=== PATIENT | male | born 1955 | race Caucasian/White ===

== ENCOUNTER 2020-11-07 14:21 | Inpatient (IN) | payer MEDICARE, SELFPAY ==
[2020-11-07] VITALS (11 sets, daily range): BP systolic 91–159; BP diastolic 70–82; PULSE 84–99; RESP 18–32; TEMP 36.7; O2SAT 91–100; BMI 40.6; BMI 39.1
--- NOTE | 2020-11-07 15:43 | RAD_ITS ---
STUDY: X-RAY CHEST REASON FOR EXAM: Male, 65 years old. sob TECHNIQUE: 1 view COMPARISON: Prior chest radiograph from 10/26/2012 FINDINGS: The lungs are clear and expanded. There is no demonstrated pleural abnormality. Normal size heart. Normal mediastinum and issa. Normal visualized pulmonary arteries. There is atherosclerotic calcification of the aortic arch with tortuosity. Normal visualized thoracic spine. Normal visualized ribs, clavicles, and shoulders. There is no demonstrated abnormality of the visualized soft tissue structures of the upper abdomen. RAD/Chest 1 View (Portable) IMPRESSION: No acute cardiopulmonary findings or changes. Negative for consolidation, atelectasis, cardiomegaly or pleural effusion. Electronically Signed: Julia Jacob MD at 17:00 EDT , Service support ,
--- NOTE | 2020-11-07 15:43 | EKG12_ITS ---
Test Reason : SOB Blood Pressure : / mmHG Vent. Rate : 092 BPM Atrial Rate : 092 BPM P-R Int : 174 ms QRS Dur : 092 ms QT Int : 364 ms P-R-T Axes : 051 007 084 degrees QTc Int : 450 ms Normal sinus rhythm Possible Inferior infarct , age undetermined Abnormal ECG Confirmed by PAOLO BHANDARI, CARLA ([id number]), editorial assistant FELIPA SULLIVAN ([id number]) on 11/11/2020 10:28:36 AM Referred By: TAMMY Confirmed By:CARLA BOONE MD
--- NOTE | 2020-11-07 15:45 | ED.VIS.GEN ---
History of Present Illness Chief Complaint: Shortness of Breath Informant: Patient Onset: Days Context: Gradual Onset Timing: Continuous Current Severity: Moderate Maximum Severity: Severe Narrative: The patient is a 65-year-old male who presents to the emergency department shortness of breath, cough, and myalgias. The patient states his symptoms been worsening over the past 3 days. He is a heavy smoker. The patient states he is not seen a physician in over 25 years. He is on no daily medications. He states that he has been having significant cough with productive sputum. He states there is times where he feels like he cannot catch his breath. He denies any recent sick contacts. He denies any chest pain. He states today, just walking around he was very dyspneic. Prior similar symptoms: No Recent Illness/Hospitalization: No Past Medical History - Allergies and Home Meds Allergies/Adverse Reactions: Allergies No Known Allergies Allergy (Verified 11/07/20 14:38) Primary Care Physician: Toy Rabago MD [STAFF PHYSICIAN] - Prior records reviewed: Yes Past Medical History: None Surgical History: noncontributory Smoking Status: Current every day smoker Review of Systems General: Reports: Chills. Denies: Fever, Sweats Eyes: Denies: Visual changes - bilaterally, Diplopia ENT: Denies: Rhinorrhea, Sore throat Cardiovascular: Denies: Chest pain, Palpitations Respiratory: Reports: Dyspnea, Cough. Denies: Dyspnea on exertion Gastrointestinal: Denies: Abdominal pain, Nausea, Vomiting, Diarrhea, Melena, Hematochezia Genitourinary: Denies: Dysuria, Hematuria, Frequency Musculoskeletal: Denies: Back pain, Extremity Pain Skin: Denies: Rash, Wounds Neurological: Denies: Headache, Weakness, Numbness Physical Exam Vital Signs/Narrative: Vital Signs Temp Pulse Resp BP Pulse Ox 11/07/20 15:41 28 H 95 11/07/20 14:33 98.0 F 97 18 159/75 H 92 Inital Vital Signs reviewed: Yes General: Well nourished, Well developed, No Acute Distress Head: Normocephalic, Atraumatic Eyes: Perrl, EOMI ENT: Moist mucous membranes, No rhinorrhea Neck: Supple, Nontender Cardiovascular: Regular rate, Regular rhythm, No murmurs Respiratory: No distress, Chest nontender, Wheezing Abdomen: Soft, Nontender, Nondistended, Normal bowel sounds Back: Nontender, Normal Inspection Extremities: Nontender, No edema Skin: Normal color, No rash Neurological: Alert, Oriented x3, Cranial nerves II-XII grossly intact, Normal Strength, Normal Sensation Psychological: Normal affect, Normal Mood Diagnostic/Tx/Re-eval Chest X-Ray - ED: 1 View, Read by ED Physician, Normal, Heart, Mediastinum, Bony Structures, Chronic Changes - Rhythm Strip Rhythm Strip: Sinus Rhythm Rate: 90 Ectopy: None - EKG Initial EKG Interpretation: Sinus Rhythm, No Acute Injury Pattern Prior: No Prior - Medical Decision Making Patient presents with cough and shortness of breath. EKG was obtained on arrival. Was sinus rhythm without evidence of acute ischemia. Patient was given multiple rounds of breathing treatments with improvement of his aeration. Chest x-ray does not show focal infiltrative process. Covid was negative. Lactic was negative. He patient did have elevated troponin but still within the indeterminate range. He has no history of underlying heart disease he does not have an ischemic EKG. I do feel that this is more likely from his underlying hypoxia, but either way the patient is going to need admitted. My suspicion is that he likely has underlying COPD. I will treat him for community-acquired pneumonia given the productive sputum. The patient was discussed with the hospitalist and will be admitted. Impression 1. COPD exacerbation 2. Hypoxia 3. Indeterminate troponin ED Disposition - Plan for ED Patient: Referrals: Toy Rabago MD [STAFF PHYSICIAN] -
[2020-11-07] MEDS: Acetaminophen 500 MG Tablet 1000 MG PO ×2 (15:48→22:26)
[2020-11-07] MEDS: Ipratropium/Albuterol Sulfate 3 ML AMPUL.NEB INHALATION ×2 (15:57→22:03)
[2020-11-07 16:14] LABS: Absolute Lymphocyte Count 0.85 X10^3/uL (0.83-4.51); Basophil# 0.05 X10^3/uL; Basophil% 0.4 % (0-1); Eosinophil# 0.01 X10^3/uL; Eosinophils% 0.1 % (0-5); Hematocrit 41.1 % (40-54); Hemoglobin 14.1 g/dL (13.0-16.5); Lymphocyte # 0.85 X10^3/ul (4.0); Lymphocyte % 6.7 % (19-41); Mean Corp Hgb Conc 34.3 g/dL (32-36); Mean Corpuscular Hgb 32.3 pg (27.0-32.0); Mean Corpuscular Volume 94.1 fL (80-94); Mean Platelet Vol. 8.6 fl (6.2-12.0); Monocyte# 0.62 X10^3/uL; Monocyte% 4.9 % (0-10); NRBC Flagged by Analyzer 0 % (0-5); Neutrophil # 11.01 X10^3/uL (2.7-7.7); Neutrophil % 86.9 % (47-70); POSITIVE MORPHOLOGY YES; Platelet Count 153 K/mm3 (150-450); RBC Distribution Width CV 13.8 % (11.6-14.6); RBC Distribution Width SD 47.9 fl (35.1-43.9); Red Blood Count 4.37 M/mm3 (4.6-6.2); White Blood Count 12.7 K/mm3 (4.4-11.0)
[2020-11-07 16:17] LABS: Differential Indicated SCAN CRITERIA MET
[2020-11-07 16:33] LABS: ALB/GLOB Ratio 0.9 RATIO (0.9-2.4); AST(SGOT) 66 U/L (15-37); Alanine Aminotransfer ALT/SGPT 55 U/L (16-61); Albumin, Serum 3.4 g/dL (3.2-5.0); Alkaline Phosphatase 87 U/L (45-117); Anion Gap 7 (5-15); BUN 22 mg/dL (7-18); BUN/Creat Ratio 28.9 RATIO (10-20); Calcium,Total 9.1 mg/dL (8.5-10.1); Chloride 102 mmol/L (98-107); Creatinine, Serum 0.76 mg/dL (0.70-1.30); EST Glomerular Filtration Rate 109 mL/min (>60); Est Glom Filt Rate - Afr Amer 131 mL/min (>60); Estimated Creatinine Clearance 86.85 ml/min; Globulin 3.7 g/dL (2.2-4.2); Glucose 125 mg/dL (74-106); Potassium 3.4 mmol/L (3.5-5.1); Protein, Total 7.1 g/dL (6.4-8.2); Sodium Level 134 mmol/L (136-145)
[2020-11-07 16:49] LABS: Lactic Acid 1.1 mmol/L (0.4-1.9)
[2020-11-07] MEDS: Albuterol 2.5 MG/3 ML VIAL.NEB. INHALATION (16:51)
[2020-11-07 16:56] LABS: Platelet Estimate ADEQUATE (ADEQ); Red Cell Morphology N CHROM NORMAL (NORM C&C)
[2020-11-07 16:57] LABS: Anisocytosis RARE; Macrocytosis RARE
[2020-11-07 17:02] LABS: BNP,B-Type NATRIURETIC PEPTIDE 215.8 pg/mL (0-100)
[2020-11-07] MEDS: MethylPREDNISolone 125 MG/2 ML Vial IV (17:15)
[2020-11-07] MEDS: Ceftriaxone 1 GM/50 ML BAG IV (17:55)
--- NOTE | 2020-11-07 20:56 | HP.PCM_ITS ---
Problem List (1) Hypoxia Status: Acute (2) COPD exacerbation Status: Chronic (3) Nicotine dependence Status: Chronic Qualifiers: Nicotine product type: cigarettes Substance use status: unspecified nicotine-induced disorder Qualified Code(s): F17.219 - Nicotine dependence, cigarettes, with unspecified nicotine-induced disorders (4) Alcohol use disorder Status: Chronic (5) Hypokalemia Status: Acute (6) Elevated troponin Status: Acute History of Present Illness Date of Admission: 11/07/20 Chief Complaint: SOB, chest discomfort The patient is a 65 year old M with past medical history of chronic back pain, chronic nicotine use and alcohol use disorder comes in with complaints of shortness of breath, cough and generalized aches. This has been ongoing for about 3 days. Patient has not seen a physician in more than 25 years. He does not take any maintenance medications. He has shortness of breath on exertion and at rest. He denied any fever or chills. He denied any sick contacts. He lives alone. His vitals in the ED showed temperature of 98.0F, heart rate of 97, blood pressure 159/75, respiration rate 18, SPO2 is 92% on room air. BC count was 12.7, hemoglobin 14.1, platelet count 153, sodium 134, potassium 3.4, chloride 102, bicarbonate 25, BUN 22, creatinine 0.76, compared to one 5.8. Troponin was 0.366. EKG shows normal sinus rhythm, no acute ST-T changes. Admitting chest x-ray shows no acute cardiopulmonary findings. Past Medical History Past Medical History (Chronic Problems): Chronic Problems COPD exacerbation (Chronic) Nicotine dependence (Chronic) Alcohol use disorder (Chronic) Allergies No Known Allergies Allergy (Verified 11/07/20 14:38) Home Medications: Ambulatory Orders Medication Instructions Recorded NK 11/07/20 Surgical History: appendectomy, herniorrhaphy Psychiatric History: No pertinent psych hx Lives: Alone Smoking Status: Current every day smoker Tobacco Use: Cigarettes Alcohol: Heavy Drugs: None - *Family History Maternal History Items: Diabetes Paternal History Items: Heart Disease Review of Systems Constitutional: Reports: Malaise, Fatigue. Denies: Anorexia, Chills, Fever, Night Sweats, Weight Change Eyes: Denies: Blurred vision, Cataracts, Conjunctivae Inflammation, Pain, Redness, Vision Change HEENT: Denies: Head Aches, Hearing Changes, Sinus Congestion, Sinus Drainage Cardiovascular: Denies: Chest Pain, Claudication, Orthopnea, Palpitations, Paroxysmal Noc. Dyspnea Respiratory: Reports: Cough, Shortness of breath at rest, Shortness of breath upon exertion. Denies: Sputum production Gastrointestinal: Denies: Abdominal Pain, Nausea, Vomiting Genitourinary: Denies: Dysuria, Frequency, Incontinence Musculoskeletal: Denies: Joint Pain, Joint stiffness, Joint swelling, Joint Tenderness Skin: Denies: Pruritis, Rash, Wounds Neurological: Denies: Difficulty swallowing, Focal weakness, Numbness, Tingling Psychiatric: Denies: Anxiety, Depression, Homicidal Ideations, Suicidal Ideations Hematologic/ Lymphatic: Denies: Easy Bruising, Easy Bleeding VTE Information - Inpt Only VTE Present on Admission: No VTE Pharm Prophylaxis ordered?: Yes - Physical Exam Vitals/I&O's: Vital Signs Temp Pulse Resp BP Pulse Ox 98.1 F 91 20 H 122/73 H 92 11/07/20 18:28 11/07/20 19:00 11/07/20 18:28 11/07/20 18:28 11/07/20 19:34 Oxygen Flow Rate (L/min) 2 Oxygen Delivery Method Nasal Cannula Weight: 141.974 kg Body Mass Index (BMI) 39.1 Intake and Output for Last 24 Hours 11/05/20 11/06/20 11/07/20 23:59 23:59 23:59 Intake Total 550 / 550 Balance 550 / 550 General: Alert, Oriented x3, Cooperative, No apparent distress HEENT: Atraumatic, PERRLA, EOMI, Normocephalic Oral: Moist Mucosa Neck: Supple Lungs: Diminished, Wheezes Cardiovascular: Regular rate, Regular Rhythm, Normal S1, Normal S2 Abdomen: Bowel Sounds Present, Soft, Non Tender, Non-Distended, No Hepato- splenomegaly Extremities: No edema Skin: No rashes Musculoskeletal: No Tenderness to Palpation of Joints or Extremities Lymphatic: No Cervical, Supraclavicular, or Inguinal Adenopathy Neurological: Cranial nerves II-XII grossly intact, Neuro grossly intact Psych/Mental Status: Normal Affect, Appropriate Microbiology Past 72 Hours 11/07/20 16:06 Mucosa - Nasopharyngeal SARS-CoV-2 Antigen (Rapid) - Final Laboratory Results 11/07/20 16:00: WBC 12.7 H, RBC 4.37 L, Hgb 14.1, Hct 41.1, MCV 94.1 H, MCH 32.3 H, MCHC 34.3, RDW Std Deviation 47.9 H, RDW Coeff of Isaura 13.8, Plt Count 153, MPV 8.6, Immature Gran % (Auto) 1.000 H, Neut % (Auto) 86.9 H, Lymph % (Auto) 6.7 L, [place] % (Auto) 4.9, Eos % (Auto) 0.1, Baso % (Auto) 0.4, Absolute Neuts (auto) 11.0 H, Absolute Lymphs (auto) 0.85, Nucleated RBC % 0, Platelet Estimate ADEQUATE, RBC Morphology N CHROM, Anisocytosis RARE, Macrocytosis RARE 11/07/20 16:00: Sodium 134 L, Potassium 3.4 L, Chloride 102, Carbon Dioxide 25.0, Anion Gap 7, BUN 22 H, Creatinine 0.76, Estim Creat Clear Calc 86.85, Est GFR (MDRD) Af Amer 131, Est GFR (MDRD) Non-Af 109, BUN/Creatinine Ratio 28.9 H, Glucose 125 H, Calcium 9.1, Total Bilirubin 0.60, AST 66 H, ALT 55, Alkaline Phosphatase 87, Troponin I 0.366 H, Total Protein 7.1, Albumin 3.4, Globulin 3.7, Albumin/Globulin Ratio 0.9 11/07/20 16:00: Lactic Acid 1.1 11/07/20 16:00: B-Natriuretic Peptide 215.8 H Current Medications Azithromycin 500 mg/ Dextrose 255 mls @ 250 mls/hr IV X1 ONE Stop: 11/07/20 21:21 Sodium Chloride (0.9% Saline Lock 10 Ml Syringe) 10 - 40 ml IV UD PRN PRN Reason: SALINE FLUSH Assessment/Plan All Active Problems Hypoxia (Acute) Hypokalemia (Acute) Elevated troponin (Acute) 1. Acute hypoxic respiratory failure secondary to acute COPD exacerbation Continue with breathing treatments, IV steroids, encourage use of incentive spirometer. Wean off oxygen for SPO2 more than 94% 2. Acute COPD exacerbation, in a chronic smoker COVID-19 rapid antigen is negative. Admitting chest x-ray showed no infiltrates. Respiratory panel is pending Continue as above 3. Elevated troponins, likely demand, secondary to #1 and [address]-T changes, no history of heart disease, will trend troponins 4. Hypokalemia, replace, recheck in a.m. 5. Nicotine dependence, continue replacement 6. Chronic alcohol use disorder, would monitor for alcohol withdrawal If patient goes into alcohol withdrawal, will start phenobarbital taper On thiamine, folic acid 7. DVT Prophylaxis with Lovenox subcu Inpatient E&M: 34266 Init Hosp L3
[2020-11-07] MEDS: Potassium Chloride Oral Tablet 20 MEQ 60 MEQ PO (22:24)
[2020-11-08] VITALS (17 sets, daily range): BP systolic 117–162; BP diastolic 67–89; PULSE 80–94; RESP 16–20; TEMP 36.6–37.1; O2SAT 91–95
[2020-11-08 00:23] LABS: Squamous Epithelial Cells - UA 0 SEEN /hpf (0-5)
[2020-11-08 00:25] LABS: Color, Urine Yellow (Yellow); Glucose, Dipstick 1000 mg/dl (Normal); Leukocyte Esterase-Dipstick 25 /ul (Negative); Nitrite-Dipstick Negative (Negative); Occult Blood-Urine 50 /ul (Negative); Protein-Dipstick 100 mg/dl (Negative); Urine Bilirubin Dipstick Negative (Negative); Urine Clarity Sl. Cloudy (Clear); Urine Urobilinogen 1 mg/dl (Normal)
[2020-11-08 00:39] LABS: Bacteria 2+ /hpf (None Seen); Hyaline Cast 0-5 SEEN /lpf (0-5); Ketone-Dipstick 150 mg/dl (Negative); Mucous, Urine 2+ /hpf (<or=2+); Red Blood Cells-Urine 0-5 SEEN /hpf (0-5); White Blood Cells 0-5 SEEN /hpf (0-5)
[2020-11-08 04:57] LABS: Absolute Lymphocyte Count 0.86 X10^3/uL (0.83-4.51); Absolute Neutrophil Count 9.9 X10^3/uL (2.0-7.7); Basophil# 0.03 X10^3/uL; Basophil% 0.3 % (0-1); Eosinophil# 0.21 X10^3/uL; Eosinophils% 1.8 % (0-5); Hematocrit 40.8 % (40-54); Hemoglobin 13.4 g/dL (13.0-16.5); Lymphocyte # 0.86 X10^3/ul (4.0); Lymphocyte % 7.3 % (19-41); Mean Corp Hgb Conc 32.8 g/dL (32-36); Mean Corpuscular Hgb 31.3 pg (27.0-32.0); Mean Corpuscular Volume 95.3 fL (80-94); Mean Platelet Vol. 9.4 fl (6.2-12.0); Monocyte# 0.49 X10^3/uL; Monocyte% 4.2 % (0-10); NRBC Flagged by Analyzer 0 % (0-5); Neutrophil # 9.93 X10^3/uL (2.7-7.7); Neutrophil % 84.8 % (47-70); Platelet Count 157 K/mm3 (150-450); RBC Distribution Width SD 49.2 fl (35.1-43.9); Red Blood Count 4.28 M/mm3 (4.6-6.2); White Blood Count 11.7 K/mm3 (4.4-11.0)
[2020-11-08] MEDS: Acetaminophen 500 MG Tablet 1000 MG PO ×3 (05:18→21:15)
[2020-11-08 05:21] LABS: ALB/GLOB Ratio 0.7 RATIO (0.9-2.4); AST(SGOT) 64 U/L (15-37); Alanine Aminotransfer ALT/SGPT 55 U/L (16-61); Alkaline Phosphatase 86 U/L (45-117); Anion Gap 11 (5-15); BUN 22 mg/dL (7-18); BUN/Creat Ratio 30.8 RATIO (10-20); Calcium,Total 9.3 mg/dL (8.5-10.1); Chloride 102 mmol/L (98-107); Creatinine, Serum 0.71 mg/dL (0.70-1.30); EST Glomerular Filtration Rate 117 mL/min (>60); Est Glom Filt Rate - Afr Amer 142 mL/min (>60); Estimated Creatinine Clearance 86.85 ml/min; Globulin 4.1 g/dL (2.2-4.2); Glucose 197 mg/dL (74-106); Protein, Total 7.1 g/dL (6.4-8.2); Sodium Level 137 mmol/L (136-145)
[2020-11-08] MEDS: 0.9% Saline Lock 10 ML Syringe IV ×2 (05:24→15:04)
[2020-11-08] MEDS: Enoxaparin 40 MG/0.4 ML Syringe SC (05:34)
[2020-11-08] MEDS: Ipratropium/Albuterol Sulfate 3 ML AMPUL.NEB INHALATION ×4 (07:24→19:37)
[2020-11-08] MEDS: Thiamine Hydrochloride 100 MG Tablet PO (09:16)
[2020-11-08] MEDS: Folic Acid 1 MG Tablet PO (09:16)
--- NOTE | 2020-11-08 11:03 | PCM.PN.HOSP ---
Patient Problems: Active and Suspected Problems Hypoxia (Acute) Hypokalemia (Acute) Elevated troponin (Acute) Subjective: Feeling better today, but still very short of breath whenever he moves. This is his first COPD exacerbation he has not seen a doctor in 25 years Vitals/I&O's: Vital Signs Temp Pulse Resp BP Pulse Ox 97.9 F 83 18 149/89 H 93 11/08/20 08:54 11/08/20 08:54 11/08/20 08:54 11/08/20 08:54 11/08/20 08:54 Oxygen Flow Rate (L/min) 2 Oxygen Delivery Method Nasal Cannula Weight: 319 lb 3.669 oz Body Mass Index (BMI) 39.1 Intake and Output for Last 24 Hours 11/06/20 11/07/20 11/08/20 23:59 23:59 23:59 Intake Total 805 / 1105 540 / 540 Output Total 1000 / 1000 Balance 805 / 305 -460 / -460 General: Alert, Oriented x3, Cooperative, No apparent distress HEENT: Atraumatic, PERRLA, EOMI, Normocephalic Oral: Moist Mucosa Neck: Supple, No JVD Lungs: No rhonchi, No rales, Diminished, Wheezes, - - Poor air movement Cardiovascular: Regular rate, Regular Rhythm, Normal S1, Normal S2, No murmurs Abdomen: Soft, Non Tender, Non-Distended, No Hepato-splenomegaly Extremities: No edema, Capillary Refill Less than 3 Seconds Skin: No rashes, No breakdown Neurological: Neuro grossly intact, Sensory exam intact to light touch and pain Psych/Mental Status: Normal Affect, Appropriate Microbiology Past 72 Hours 11/07/20 18:00 Mucosa - Nasopharyngeal Respiratory Panel (PCR) - Final 11/07/20 16:06 Mucosa - Nasopharyngeal SARS-CoV-2 Antigen (Rapid) - Final Laboratory Results 11/07/20 16:00: WBC 12.7 H, RBC 4.37 L, Hgb 14.1, Hct 41.1, MCV 94.1 H, MCH 32.3 H, MCHC 34.3, RDW Std Deviation 47.9 H, RDW Coeff of Isaura 13.8, Plt Count 153, MPV 8.6, Immature Gran % (Auto) 1.000 H, Neut % (Auto) 86.9 H, Lymph % (Auto) 6.7 L, [place] % (Auto) 4.9, Eos % (Auto) 0.1, Baso % (Auto) 0.4, Absolute Neuts (auto) 11.0 H, Absolute Lymphs (auto) 0.85, Nucleated RBC % 0, Platelet Estimate ADEQUATE, RBC Morphology N CHROM, Anisocytosis RARE, Macrocytosis RARE 11/07/20 16:00: Sodium 134 L, Potassium 3.4 L, Chloride 102, Carbon Dioxide 25.0, Anion Gap 7, BUN 22 H, Creatinine 0.76, Estim Creat Clear Calc 86.85, Est GFR (MDRD) Af Amer 131, Est GFR (MDRD) Non-Af 109, BUN/Creatinine Ratio 28.9 H, Glucose 125 H, Calcium 9.1, Total Bilirubin 0.60, AST 66 H, ALT 55, Alkaline Phosphatase 87, Troponin I 0.366 H, Total Protein 7.1, Albumin 3.4, Globulin 3.7, Albumin/Globulin Ratio 0.9 11/07/20 16:00: Lactic Acid 1.1 11/07/20 16:00: B-Natriuretic Peptide 215.8 H 11/07/20 22:10: Troponin I 0.179 H 11/08/20 00:15: Urine Color Yellow, Urine Clarity Sl. Cloudy, Urine pH 6.0, Ur Specific [place] 1.020, Urine Protein 100 H, Urine Glucose (UA) 1000 H, Urine Ketones 150 H, Urine Occult Blood 50 H, Urine Nitrite Negative, Urine Bilirubin Negative, Urine Urobilinogen 1 H, Ur Leukocyte Esterase 25 H, Urine RBC 0-5 SEEN, Urine WBC 0-5 SEEN, Ur Squamous Epith Cells 0 SEEN, Urine Bacteria 2+, Hyaline Casts 0-5 SEEN, Urine Mucus 2+ 11/08/20 00:35: Troponin I 0.164 H 11/08/20 04:05: WBC 11.7 H, RBC 4.28 L, Hgb 13.4, Hct 40.8, MCV 95.3 H, MCH 31.3, MCHC 32.8, RDW Std Deviation 49.2 H, RDW Coeff of Isaura 14.0, Plt Count 157, MPV 9.4, Immature Gran % (Auto) 1.600 H, Neut % (Auto) 84.8 H, Lymph % (Auto) 7.3 L, [place] % (Auto) 4.2, Eos % (Auto) 1.8, Baso % (Auto) 0.3, Absolute Neuts (auto) 9.9 H, Absolute Lymphs (auto) 0.86, Nucleated RBC % 0 11/08/20 04:05: Sodium 137, Potassium 4.0, Chloride 102, Carbon Dioxide 24.0, Anion Gap 11, BUN 22 H, Creatinine 0.71, Estim Creat Clear Calc 86.85, Est GFR (MDRD) Af Amer 142, Est GFR (MDRD) Non-Af 117, BUN/Creatinine Ratio 30.8 H, Glucose 197 H, Calcium 9.3, Total Bilirubin 0.30, AST 64 H, ALT 55, Alkaline Phosphatase 86, Total Protein 7.1, Albumin 3.0 L, Globulin 4.1, Albumin/Globulin Ratio 0.7 L 11/08/20 04:05: Troponin I 0.114 H Current Medications Acetaminophen (Acetaminophen 500 Mg Tablet) 1,000 mg PO TID [facility] Last Admin: 11/08/20 05:18 Dose: 1,000 mg Documented by: Al Hydroxide/Mg Hydroxide (Mag Hydrox/Al Hydrox/Simeth 30 Ml Udc) 30 ml PO Q6H PRN PRN PRN Reason: Gastric Burning Albuterol/Ipratropium (Ipratropium/Albuterol Sulfate 3 Ml Ampul.Neb) 3 ml INHALATION Q4HWA.RT [facility] Last Admin: 11/08/20 10:57 Dose: 3 ml Documented by: Dicyclomine HCl (Dicyclomine 10 Mg Capsule) 20 mg PO Q6H PRN PRN PRN Reason: abdominal discomfort Enoxaparin Sodium (Enoxaparin 40 Mg/0.4 Ml Syringe) 40 mg SC DAILY@0600 [facility] Last Admin: 11/08/20 05:34 Dose: 40 mg Documented by: Folic Acid (Folic Acid 1 Mg Tablet) 1 mg PO DAILY@0800 [facility] Last Admin: 11/08/20 09:16 Dose: 1 mg Documented by: Gabapentin (Gabapentin 300 Mg Capsule) 300 mg PO Q8H PRN PRN PRN Reason: moderate to severe anxiety Hydroxyzine Pamoate (Hydroxyzine Mary 25 Mg Capsule) 50 mg PO Q4H PRN PRN PRN Reason: mild anxiety Azithromycin 500 mg/ Dextrose 255 mls @ 250 mls/hr IV Q24@2200 [facility] Last Infusion: 11/07/20 22:46 Dose: Infused Documented by: Loperamide HCl (Loperamide 2 Mg Capsule) 2 mg PO Q4H PRN PRN PRN Reason: LOOSE STOOLS Methylprednisolone (Methylprednisolone 40 Mg/Ml Vial) 40 mg IV Q8 [facility] Last Admin: 11/08/20 05:19 Dose: 40 mg Documented by: Morphine Sulfate (Morphine 2 Mg/Ml Syringe) 2 mg IV Q3H PRN PRN PRN Reason: Pain Score 6-10 Nicotine (Nicotine 21 Mg Patch) 21 mg TD DAILY [facility] Last Admin: 11/08/20 09:16 Dose: 21 mg Documented by: Nicotine Polacrilex (Nicotine Polacrilex 4 Mg Gum) 4 mg PO Q2H PRN PRN PRN Reason: Nicotine Craving Ondansetron HCl (Ondansetron 4 Mg/2 Ml Vial) 4 mg IV Q8H PRN PRN PRN Reason: NAUSEA/VOMITING Ondansetron HCl (Ondansetron 8 Mg Tablet) 8 mg PO Q8H PRN PRN PRN Reason: NAUSEA Senna/Docusate Sodium (Senna/Docusate Sodium 1 Tablet) 2 tablet PO BID PRN PRN PRN Reason: Constipation Sodium Chloride (0.9% Saline Lock 10 Ml Syringe) 10 - 40 ml IV UD PRN PRN Reason: SALINE FLUSH Last Admin: 11/08/20 05:24 Dose: 10 ml Documented by: Thiamine HCl (Thiamine Hydrochloride 100 Mg Tablet) [facility] Last Admin: 11/08/20 09:16 Dose: 100 mg Documented by: Trazodone HCl (Trazodone 100 Mg Tablet) 100 mg PO QHS PRN PRN Reason: INSOMNIA STROKE Vital Signs/Narrative: Vital Signs Temp Pulse Resp BP Pulse Ox 11/08/20 08:54 97.9 F 83 18 149/89 H 93 11/08/20 07:24 86 20 H 92 11/08/20 07:09 84 Medical Necessity - Tobacco Use Smoking Status: Current every day smoker Tobacco Use: Cigarettes Assessment/Plan All Active Problems Hypoxia (Acute) Hypokalemia (Acute) Elevated troponin (Acute) 1. Acute hypoxic respiratory insufficiency secondary to COPD exacerbation/elevated troponin/tobacco abuse -Elevated troponin is likely secondary to demand ischemia however as he has not seen a doctor in over 25 years will obtain an echo to evaluate wall motion and if this is abnormal may potentially need to get cardiology consult or even proceed with a stress test. -He was 92% on room air in the ER however per report he desaturates to below 88% with any type of ambulation therefore we will continue with oxygen at 2 L and will wean as able -Discussed tobacco cessation -Continue with inhalers and steroids -Covid negative 2. Chronic alcohol abuse -He drinks about 6 beers a day -Denies having gone through withdrawal before -We will place him on a CIWA protocol and if necessary can start him on the withdrawal protocol 3. I discussed with him the importance of finding a PCP. Based on his body habitus he is likely obstructive sleep apnea also his blood sugar is climbing so he also likely has diabetes that have all been undiagnosed for a long time. He expressed understanding of need to take control of his health care. In the meantime we will obtain an A1c and place him on sliding scale insulin DVT: Lovenox Inpatient E&M: 26261 Subs Hosp L2
--- NOTE | 2020-11-08 11:09 | ECHOCS_ITS ---
Reason For Study: Dyspnea/SOB Procedure This was a 2D Doppler, Color Flow transthoracic echocardiogram. The study was technically difficult. Contrast injection was performed. Exam performed portable in patient room. Left Ventricle Normal LV size. Mild concentric left ventricular hypertrophy. Left ventricular systolic function is normal. The estimated ejection fraction is 60 %. Stage 2 diastolic dysfunction. No regional wall motion abnormalities noted. Right Ventricle Normal RV size. Normal systolic function. Atria The left atrium is mildly enlarged. Normal right atrium. Mitral Valve Normal mitral valve. Tricuspid Valve Normal tricuspid valve. Unable to estimate RV systolic pressure due to inadequate jet, pulmonary artery pressure probably normal. Aortic Valve The aortic valve is not well visualized. Pulmonic Valve The pulmonic valve is not well visualized. Great Vessels Normal aortic root. The pulmonary artery is normal size. Normal inferior vena cava. Pericardium/Pleural No pericardial effusion. Medication Diluted definity 2ml given slow IV push to enhance endocardial definition. MMode/2D Measurements & Calculations LVIDd: 6.0 cm IVSd: 1.4 cm LA dimension: 4.7 cm LVIDs: 4.5 cm LVPWd: 1.3 cm RVDd: 4.3 cm FS: 24.8 % LAV(MOD-bp): 89.9 ml LA A4 area: 26.1 cm2 RA A4 area: 20.4 cm2 LAV(MOD-bp) Indexed: 33.6 ml/m2 LAV(MOD-sp2): 89.0 ml LAV(MOD-sp4): 84.6 ml Time Measurements MV dec time: 0.18 sec Doppler Measurements & Calculations MV E max jn: 119.2 cm/sec Lat Peak E' Jn: 9.4 cm/sec Med Peak E' Jn: 7.4 cm/sec MV A max jn: 106.3 cm/sec E/E' lat: 12.7 E/E' med: 16.1 MV E/A: 1.1 MV V2 max: 121.3 cm/sec MV P1/2t max jn: 124.3 cm/sec Ao V2 max: 143.8 cm/sec MV max P.9 mmHg MV P1/2t: 75.9 msec Ao max P.3 mmHg MV V2 mean: 77.9 cm/sec MV dec slope: 479.7 cm/sec2 MV mean P.9 mmHg MV V2 VTI: 29.5 cm MVA(P1/2t): 2.9 cm2 LV V1 max: 109.4 cm/sec PA V2 max: 91.2 cm/sec LV V1 max P.8 mmHg Interpretation Summary Normal LV size. Mild concentric left ventricular hypertrophy. Left ventricular systolic function is normal. The estimated ejection fraction is 60 %. Stage 2 diastolic dysfunction. Contrast injection was performed. Ordering Physician: Kyle Sotomayor Referring Physician: no PCP noted Performed By: Abraham Antonio RCS
[2020-11-08 12:32] LABS: Hemoglobin A1c 5.2 % (3.8-5.6)
--- NOTE | 2020-11-08 13:50 | CASEMGMT ---
CLAUDIA MORENO assessment: Face to Face with patient for initial transition planning/care coordination assessment. CLAUDIA MORENO introduced self and role at [facility], pt voices understanding and consents to assessment. Pt is sitting up in bed in no distress on 2L nc. Pt is A/Ox4 and answers all questions appropriately. Care providers, pharmacy, and demographics verified. Presentation: SOB increased last 3 days, weakness/pain from shoulders to fingers Admitting dx: COPD exac PCP: Pt states does not currently have PCP and list of local PCP's provided. Specialists: Pt states no specialists. Preferred Pharmacy: [facility] Insurance: [facility] A/B Prescription Benefit: Pt does not have Rx coverage and states would like assistance with Rx assist resources, SW consulted. Pt states has been trying to work on [place], SW aware. Living Will/HPOA: Pt states does not have LW/HPOA but would possibly like to complete AD's at this time, SW consulted. LNOK: Caitlyn Sanabria, mother; Devika Sanabria, but 'for years' per pt, live separately-pt states he would like to keep Devika as contact Living Arrangements: Pt states lives alone in mobile home with 5 [address] in and states no concerns at home. Pt states independent with ADL's. Transportation: Pt states drives self and states no transportation concerns. DME/HHC: Pt states has a cane, rails, and grab bars. Pt states no preference for DME company, if oxygen required at discharge. Pt does state concerns with anyone coming into home and states 'I got to work on some things there first' and states would like oxygen(if needed) delivered to porch. Pt states no hx of HHC or SNF in the past. Pt states no concerns with going home at time of discharge. Pt is retired. Pt states smokes 2.5 packs of self-rolled pipe tobacco cigarettes daily and drinks 6 tall boys daily. Pt states he would like to stop smoking and feels he is doing well on the nicotine patch at this time but does state concerns with when he goes home. Pt is also interested in ETOH abuse resources at this time and states 'I know I need to make some changes.' SW consulted for this as well. Pt states no further concerns/needs. CM to follow for home oxygen need(green sheet on chart) and any further discharge planning/needs. Advised pt to ask for CM if any further questions/concerns/needs arise, voices understanding. Pt Goal: Home Plan: Home Esteban TAYLOR CM
--- NOTE | 2020-11-08 14:19 | CASEMGMT ---
Social Work SW received referral from RNCM for alcohol resources, advance directives and financial concerns. SW met with pt in room and introduced self and role of SW. Pt confirms that he drinks a 6 pack of Tall Boys each night. Pt stating that he has never been to a program for cessation and is interested in information. SW provided written information on , A New , AA programs and other area programs. Pt is agreeable for SW to make appt for pt at [facility]. Appointment made for 11/14 at 4:00pm. SW also explained Medicaid and provided written information on application process and number to call to apply. Verbal and written information also provided on prescription assistance programs and [employer]. SW discussed Living Will and Health Care POA and explained legal decision makers should pt not complete documents. Pt would like to consider options prior to completion. Social Work Rack Card provided and pt made aware he can make an appointment with Social Work to complete documents as outpatient. Plan: Appointment with [facility] for ETOH AYANNA Molina
--- NOTE | 2020-11-08 20:11 | PCM.PN.BLA ---
Progress Note Called about patient's hallucinations?he has been seeing mice in his room. Unclear if this is alcohol withdrawal-induced hallucinations CIWA score is 4. No started on a phenobarbital taper. We will go ahead and start him on a phenobarb taper STROKE Vital Signs/Narrative: Vital Signs Temp Pulse Resp BP Pulse Ox 11/08/20 20:03 98.7 F 89 16 155/76 H 91 11/08/20 19:00 85 11/08/20 16:51 88
[2020-11-08] MEDS: Phenobarbital 32.4 MG Tablet 64.8 MG PO (21:24)
[2020-11-09] VITALS (21 sets, daily range): BP systolic 128–181; BP diastolic 85–119; PULSE 75–92; RESP 16–22; TEMP 36.4–36.6; O2SAT 93–96; BMI 40.6
[2020-11-09] MEDS: Phenobarbital 32.4 MG Tablet 64.8 MG PO ×6 (00:42→20:17)
[2020-11-09] MEDS: Acetaminophen 500 MG Tablet 1000 MG PO ×3 (05:51→23:03)
[2020-11-09] MEDS: Enoxaparin 40 MG/0.4 ML Syringe SC (05:51)
[2020-11-09 06:41] LABS: Absolute Lymphocyte Count 1.51 X10^3/uL (0.83-4.51); Absolute Neutrophil Count 15.4 X10^3/uL (2.0-7.7); Basophil# 0.04 X10^3/uL; Basophil% 0.2 % (0-1); Eosinophil# 0.05 X10^3/uL; Eosinophils% 0.3 % (0-5); Hemoglobin 14.4 g/dL (13.0-16.5); Lymphocyte # 1.51 X10^3/ul (4.0); Lymphocyte % 8.2 % (19-41); Mean Corp Hgb Conc 33.5 g/dL (32-36); Mean Corpuscular Hgb 31.8 pg (27.0-32.0); Mean Corpuscular Volume 94.9 fL (80-94); Mean Platelet Vol. 8.9 fl (6.2-12.0); Monocyte# 1.35 X10^3/uL; Monocyte% 7.3 % (0-10); NRBC Flagged by Analyzer 0 % (0-5); Neutrophil # 15.36 X10^3/uL (2.7-7.7); Platelet Count 216 K/mm3 (150-450); Red Blood Count 4.53 M/mm3 (4.6-6.2); White Blood Count 18.5 K/mm3 (4.4-11.0)
[2020-11-09 07:04] LABS: Anion Gap 5 (5-15); BUN 29 mg/dL (7-18); BUN/Creat Ratio 46.3 RATIO (10-20); Calcium,Total 9.3 mg/dL (8.5-10.1); Chloride 108 mmol/L (98-107); Creatinine, Serum 0.63 mg/dL (0.70-1.30); EST Glomerular Filtration Rate 136 mL/min (>60); Est Glom Filt Rate - Afr Amer 164 mL/min (>60); Estimated Creatinine Clearance 86.85 ml/min; Glucose 155 mg/dL (74-106); Potassium 4.3 mmol/L (3.5-5.1); Sodium Level 139 mmol/L (136-145)
[2020-11-09] MEDS: Ipratropium/Albuterol Sulfate 3 ML AMPUL.NEB INHALATION ×4 (07:40→19:37)
[2020-11-09] MEDS: Thiamine Hydrochloride 100 MG Tablet PO (08:53)
[2020-11-09] MEDS: Folic Acid 1 MG Tablet PO (08:53)
--- NOTE | 2020-11-09 13:43 | NURSING ---
Report obtained from Chaya RN. This nurse will be talking over care for pt. This nurse is aware of recent Vital Signs.
--- NOTE | 2020-11-09 13:55 | PN_ITS ---
Patient Problems: Active and Suspected Problems Hypoxia (Acute) Hypokalemia (Acute) Elevated troponin (Acute) Subjective: Patient seen and examined. He still feels a bit short of breath today and was wheezing. He also complained of left flank pain which he says has been going on for about 2 years and is a tightness associated with shortness of breath. He is concerned that in light of his extreme smoking history, he may have a tumor there. Review of systems otherwise negative. He has remained hemodynamically stable and is on 2 L of oxygen. Vitals/I&O's: Vital Signs Temp Pulse Resp BP Pulse Ox 97.8 F 87 20 H 165/102 H 93 11/09/20 12:58 11/09/20 12:58 11/09/20 12:58 11/09/20 12:58 11/09/20 12:58 Oxygen Flow Rate (L/min) 2 Oxygen Delivery Method Nasal Cannula Weight: 325 lb 9.964 oz Body Mass Index (BMI) 39.1 Intake and Output for Last 24 Hours 11/07/20 11/08/20 11/09/20 23:59 23:59 23:59 Intake Total 805 / 1105 1765 / 2065 800 / 800 Output Total 2049 / 2049 800 / 800 Balance 805 / 305 -285 / 15 0 / 0 General: Alert, Oriented x3, Cooperative HEENT: Atraumatic, PERRLA, EOMI, Normocephalic Oral: Dry Mucosa Neck: Supple, No JVD, Negative Carotid Bruits Lungs: - - diminished breath sounds bibasally, with moderate wheezing. no crackles. On 2L of oxygen by nasal canula Cardiovascular: Regular rate, Regular Rhythm, Normal S1, Normal S2, No murmurs Abdomen: Bowel Sounds Present, Soft, Non Tender, Non-Distended, No Hepato- splenomegaly Extremities: No clubbing, No cyanosis, No edema, Capillary Refill Less than 3 Seconds Skin: No rashes, No breakdown Musculoskeletal: No Tenderness to Palpation of Joints or Extremities Lymphatic: No Cervical, Supraclavicular, or Inguinal Adenopathy Neurological: Cranial nerves II-XII grossly intact, Neuro grossly intact, Motor Exam 5/5 strength throughout Psych/Mental Status: Normal Affect, Appropriate, Alert and oriented to time, place, person, mood and affect Microbiology Past 72 Hours 11/07/20 18:00 Mucosa - Nasopharyngeal Respiratory Panel (PCR) - Final 11/07/20 16:06 Mucosa - Nasopharyngeal SARS-CoV-2 Antigen (Rapid) - Final Laboratory Results 11/09/20 06:31: WBC 18.5 H, RBC 4.53 L, Hgb 14.4, Hct 43.0, MCV 94.9 H, MCH 31.8, MCHC 33.5, RDW Std Deviation 49.0 H, RDW Coeff of Isaura 14.0, Plt Count 216, MPV 8.9, Immature Gran % (Auto) 1.000 H, Neut % (Auto) 83.0 H, Lymph % (Auto) 8.2 L, [place] % (Auto) 7.3, Eos % (Auto) 0.3, Baso % (Auto) 0.2, Absolute Neuts (auto) 15.4 H, Absolute Lymphs (auto) 1.51, Nucleated RBC % 0 11/09/20 06:31: Sodium 139, Potassium 4.3, Chloride 108 H, Carbon Dioxide 26.0, Anion Gap 5, BUN 29 H, Creatinine 0.63 L, Estim Creat Clear Calc 86.85, Est GFR (MDRD) Af Amer 164, Est GFR (MDRD) Non-Af 136, BUN/Creatinine Ratio 46.3 H, Glucose 155 H, Calcium 9.3 Diagnostic Data Chest X-Ray 11/07/20 15:43 IMPRESSION: No acute cardiopulmonary findings or changes. Negative for consolidation, atelectasis, cardiomegaly or pleural effusion. Electronically Signed: Julia Jacob MD at 17:00 EDT , Service support , Current Medications Acetaminophen (Acetaminophen 500 Mg Tablet) 1,000 mg PO TID [facility] Last Admin: 11/09/20 05:51 Dose: 1,000 mg Documented by: Al Hydroxide/Mg Hydroxide (Mag Hydrox/Al Hydrox/Simeth 30 Ml Udc) 30 ml PO Q6H PRN PRN PRN Reason: Gastric Burning Albuterol/Ipratropium (Ipratropium/Albuterol Sulfate 3 Ml Ampul.Neb) 3 ml INHALATION Q4HWA.RT [facility] Last Admin: 11/09/20 11:28 Dose: 3 ml Documented by: Dicyclomine HCl (Dicyclomine 10 Mg Capsule) 20 mg PO Q6H PRN PRN PRN Reason: abdominal discomfort Enoxaparin Sodium (Enoxaparin 40 Mg/0.4 Ml Syringe) 40 mg SC DAILY@0600 [facility] Last Admin: 11/09/20 05:51 Dose: 40 mg Documented by: Folic Acid (Folic Acid 1 Mg Tablet) 1 mg PO DAILY@0800 [facility] Last Admin: 11/09/20 08:53 Dose: 1 mg Documented by: Gabapentin (Gabapentin 300 Mg Capsule) 300 mg PO Q8H PRN PRN PRN Reason: moderate to severe anxiety Hydroxyzine Pamoate (Hydroxyzine Mary 25 Mg Capsule) 50 mg PO Q4H PRN PRN PRN Reason: mild anxiety Azithromycin 500 mg/ Dextrose 255 mls @ 250 mls/hr IV Q24@2200 [facility] Last Infusion: 11/08/20 22:22 Dose: Infused Documented by: Loperamide HCl (Loperamide 2 Mg Capsule) 2 mg PO Q4H PRN PRN PRN Reason: LOOSE STOOLS Methylprednisolone (Methylprednisolone 40 Mg/Ml Vial) 40 mg IV Q8 [facility] Last Admin: 11/09/20 05:51 Dose: 40 mg Documented by: Nicotine (Nicotine 21 Mg Patch) 21 mg TD DAILY [facility] Last Admin: 11/09/20 08:53 Dose: 21 mg Documented by: Nicotine Polacrilex (Nicotine Polacrilex 4 Mg Gum) 4 mg PO Q2H PRN PRN PRN Reason: Nicotine Craving Last Admin: 11/09/20 05:04 Dose: 4 mg Documented by: Ondansetron HCl (Ondansetron 4 Mg/2 Ml Vial) 4 mg IV Q8H PRN PRN PRN Reason: NAUSEA/VOMITING Ondansetron HCl (Ondansetron 8 Mg Tablet) 8 mg PO Q8H PRN PRN PRN Reason: NAUSEA Phenobarbital (Phenobarbital 32.4 Mg Tablet) 97.2 mg PO Q4H [facility]; Taper Stop: 11/13/20 04:44 Last Admin: 11/09/20 12:48 Dose: 97.2 mg Documented by: Senna/Docusate Sodium (Senna/Docusate Sodium 1 Tablet) 2 tablet PO BID PRN PRN PRN Reason: Constipation Sodium Chloride (0.9% Saline Lock 10 Ml Syringe) 10 - 40 ml IV UD PRN PRN Reason: SALINE FLUSH Last Admin: 11/08/20 15:04 Dose: 10 ml Documented by: Thiamine HCl (Thiamine Hydrochloride 100 Mg Tablet) 100 mg PO DAILYCM VIRAL Last Admin: 11/09/20 08:53 Dose: 100 mg Documented by: Trazodone HCl (Trazodone 100 Mg Tablet) 100 mg PO QHS PRN PRN Reason: INSOMNIA STROKE Vital Signs/Narrative: Vital Signs Temp Pulse Resp BP Pulse Ox 11/09/20 12:58 97.8 F 87 20 H 165/102 H 93 11/09/20 12:00 90 11/09/20 11:28 87 16 11/09/20 10:00 97.6 F L 92 20 H 128/85 H 93 Medical Necessity - Tobacco Use Smoking Status: Current every day smoker Tobacco Use: Cigarettes Assessment/Plan All Active Problems Hypoxia (Acute) Hypokalemia (Acute) Elevated troponin (Acute) #Acute hypoxic respiratory insufficiency due to COPD exacerbation * still wheezing * on breathing treatment with bronchodilators * IV solumedrol * titrate oxygen to maintain sats >90% * #COPD exacerbation: as above #Chronic alcohol abuse * CIWA protocol and on alcohol withdrawal protocol with phenobarbital. * Monitor CIWA score. * #Elevated blood sugars: A1c was 5.2 therefore he is not diabetic. Will monitor. #Elevated troponin * Troponin was 0.366 and is trended down to 0.114. May have been due to demand ischemia from shortness of breath. * 2D echo showed EF of 60% with stage II diastolic dysfunction and no regional motion abnormalities noted. * In positive balance by 520 mils. In light of diastolic dysfunction, will start patient on Lasix to help with shortness of breath. * #10 dependence: Still smokes about 2 packs daily. Counseled to quit. Nicotine patch 21 mg daily. DVT prophylaxis: lovenox Inpatient E&M: 06303 [facility] Hosp L2
[2020-11-09] MEDS: 0.9% Saline Lock 10 ML Syringe IV ×2 (14:25→18:12)
--- NOTE | 2020-11-09 17:32 | NURSING ---
BP elevated. Dr. Zhang aware and order for Hydralazine ordered.
[2020-11-09] MEDS: hydrALAZINE 20 MG/ML Vial 10 MG IV (18:12)
[2020-11-09] MEDS: traZODone 100 MG Tablet PO (23:03)
[2020-11-10] VITALS (21 sets, daily range): BP systolic 126–168; BP diastolic 79–119; PULSE 67–96; RESP 16–24; TEMP 36.6–37.2; O2SAT 2–96; BMI 40.6
[2020-11-10] MEDS: Phenobarbital 32.4 MG Tablet 64.8 MG PO ×6 (00:57→20:25)
[2020-11-10] MEDS: Acetaminophen 500 MG Tablet 1000 MG PO ×3 (05:02→22:00)
[2020-11-10] MEDS: Enoxaparin 40 MG/0.4 ML Syringe SC (05:02)
[2020-11-10 06:19] LABS: Absolute Lymphocyte Count 1.97 X10^3/uL (0.83-4.51); Basophil# 0.01 X10^3/uL; Basophil% 0.1 % (0-1); Hematocrit 44.5 % (40-54); Hemoglobin 14.3 g/dL (13.0-16.5); Lymphocyte # 1.97 X10^3/ul (4.0); Lymphocyte % 13.1 % (19-41); Mean Corp Hgb Conc 32.1 g/dL (32-36); Mean Corpuscular Hgb 31.5 pg (27.0-32.0); Mean Platelet Vol. 9.3 fl (6.2-12.0); Monocyte# 1.42 X10^3/uL; Monocyte% 9.4 % (0-10); NRBC Flagged by Analyzer 0 % (0-5); Neutrophil # 11.01 X10^3/uL (2.7-7.7); Neutrophil % 73.1 % (47-70); POSITIVE MORPHOLOGY YES; Platelet Count 239 K/mm3 (150-450); RBC Distribution Width CV 14.2 % (11.6-14.6); RBC Distribution Width SD 51.5 fl (35.1-43.9); Red Blood Count 4.54 M/mm3 (4.6-6.2); White Blood Count 15.1 K/mm3 (4.4-11.0)
[2020-11-10 06:35] LABS: Differential Indicated SCAN CRITERIA MET
[2020-11-10 06:52] LABS: Differential Comment SCANNED
[2020-11-10 07:00] LABS: Anion Gap 6 (5-15); BUN 27 mg/dL (7-18); Calcium,Total 9.3 mg/dL (8.5-10.1); Chloride 108 mmol/L (98-107); Creatinine, Serum 0.61 mg/dL (0.70-1.30); EST Glomerular Filtration Rate 139 mL/min (>60); Est Glom Filt Rate - Afr Amer 169 mL/min (>60); Estimated Creatinine Clearance 86.85 ml/min; Glucose 138 mg/dL (74-106); Potassium 4.3 mmol/L (3.5-5.1); Sodium Level 139 mmol/L (136-145)
[2020-11-10] MEDS: Ipratropium/Albuterol Sulfate 3 ML AMPUL.NEB INHALATION ×4 (07:45→19:15)
[2020-11-10] MEDS: Thiamine Hydrochloride 100 MG Tablet PO (08:40)
[2020-11-10] MEDS: Folic Acid 1 MG Tablet PO (08:40)
[2020-11-10] MEDS: hydrALAZINE 20 MG/ML Vial 10 MG IV ×2 (08:48→18:14)
[2020-11-10] MEDS: 0.9% Saline Lock 10 ML Syringe IV ×3 (08:48→18:14)
--- NOTE | 2020-11-10 11:34 | PCM.PN.HOSP ---
Patient Problems: Active and Suspected Problems Hypoxia (Acute) Hypokalemia (Acute) Elevated troponin (Acute) Subjective: Patient seen and examined. He had no complaints and felt better. He was however still wheezing a bit. Review of symptoms otherwise negative. He has remained hemodynamically stable. Vitals/I&O's: Vital Signs Temp Pulse Resp BP Pulse Ox 97.8 F 76 20 H 168/85 H 95 11/10/20 08:31 11/10/20 08:48 11/10/20 08:31 11/10/20 08:48 11/10/20 08:31 Oxygen Flow Rate (L/min) 2 Oxygen Delivery Method Nasal Cannula Weight: 317 lb 10.978 oz Body Mass Index (BMI) 40.6 Intake and Output for Last 24 Hours 11/08/20 11/09/20 11/10/20 23:59 23:59 23:59 Intake Total 1764 / 5 1160 / 1460 855 / 855 Output Total 2049 / 2049 1200 / 1900 700 / 700 Balance -285 / 15 -40 / -440 155 / 155 General: Alert, Oriented x3, Cooperative HEENT: Atraumatic, PERRLA, EOMI, Normocephalic Oral: Dry Mucosa Neck: Supple, No JVD, Negative Carotid Bruits Lungs: - - diminished breath sounds bibasally, with mild wheezing. no crackles. On 2L of oxygen by nasal canula Cardiovascular: Regular rate, Regular Rhythm, Normal S1, Normal S2, No murmurs Abdomen: Bowel Sounds Present, Soft, Non Tender, Non-Distended, No Hepato-splenomegaly Extremities: No clubbing, No cyanosis, No edema, Capillary Refill Less than 3 Seconds Skin: No rashes, No breakdown Musculoskeletal: No Tenderness to Palpation of Joints or Extremities Lymphatic: No Cervical, Supraclavicular, or Inguinal Adenopathy Neurological: Cranial nerves II-XII grossly intact, Neuro grossly intact, Motor Exam 5/5 strength throughout Psych/Mental Status: Normal Affect, Appropriate, Alert and oriented to time, place, person, mood and affect Microbiology Past 72 Hours 11/07/20 16:40 Blood Culture (Wb) - Anticubital Right Blood Culture - Preliminary No growth in 48 hours. 11/07/20 17:00 Blood Culture (Wb) - Anticubital Left Blood Culture - Preliminary No growth in 48 hours. 11/07/20 18:00 Mucosa - Nasopharyngeal Respiratory Panel (PCR) - Final 11/07/20 16:06 Mucosa - Nasopharyngeal SARS-CoV-2 Antigen (Rapid) - Final Laboratory Results 11/10/20 05:22: WBC 15.1 H, RBC 4.54 L, Hgb 14.3, Hct 44.5, MCV 98.0 H, MCH 31.5, MCHC 32.1, RDW Std Deviation 51.5 H, RDW Coeff of Isaura 14.2, Plt Count 239, MPV 9.3, Immature Gran % (Auto) 4.300 H, Neut % (Auto) 73.1 H, Lymph % (Auto) 13.1 L, [place] % (Auto) 9.4, Eos % (Auto) 0.0, Baso % (Auto) 0.1, Absolute Neuts (auto) 11.0 H, Absolute Lymphs (auto) 1.97, Nucleated RBC % 0, Differential Comment SCANNED 11/10/20 05:22: Sodium 139, Potassium 4.3, Chloride 108 H, Carbon Dioxide 25.0, Anion Gap 6, BUN 27 H, Creatinine 0.61 L, Estim Creat Clear Calc 86.85, Est GFR (MDRD) Af Amer 169, Est GFR (MDRD) Non-Af 139, BUN/Creatinine Ratio 44.0 H, Glucose 138 H, Calcium 9.3 Current Medications Acetaminophen (Acetaminophen 500 Mg Tablet) 1,000 mg PO TID [facility] Last Admin: 11/10/20 05:02 Dose: 1,000 mg Documented by: Al Hydroxide/Mg Hydroxide (Mag Hydrox/Al Hydrox/Simeth 30 Ml Udc) 30 ml PO Q6H PRN PRN PRN Reason: Gastric Burning Albuterol/Ipratropium (Ipratropium/Albuterol Sulfate 3 Ml Ampul.Neb) 3 ml INHALATION Q4HWA.RT [facility] Last Admin: 11/10/20 11:28 Dose: 3 ml Documented by: Dicyclomine HCl (Dicyclomine 10 Mg Capsule) 20 mg PO Q6H PRN PRN PRN Reason: abdominal discomfort Enoxaparin Sodium (Enoxaparin 40 Mg/0.4 Ml Syringe) 40 mg SC DAILY@0600 [facility] Last Admin: 11/10/20 05:02 Dose: 40 mg Documented by: Folic Acid (Folic Acid 1 Mg Tablet) 1 mg PO DAILY@0800 [facility] Last Admin: 11/10/20 08:40 Dose: 1 mg Documented by: Gabapentin (Gabapentin 300 Mg Capsule) 300 mg PO Q8H PRN PRN PRN Reason: moderate to severe anxiety Hydralazine HCl (Hydralazine 20 Mg/Ml Vial) 10 mg IV Q6H PRN PRN PRN Reason: BLOOD PRESSURE Last Admin: 11/10/20 08:48 Dose: 10 mg Documented by: Hydroxyzine Pamoate (Hydroxyzine Mary 25 Mg Capsule) 50 mg PO Q4H PRN PRN PRN Reason: mild anxiety Azithromycin 500 mg/ Dextrose 255 mls @ 250 mls/hr IV Q24@2200 [facility] Last Infusion: 11/10/20 00:06 Dose: Infused Documented by: Loperamide HCl (Loperamide 2 Mg Capsule) 2 mg PO Q4H PRN PRN PRN Reason: LOOSE STOOLS Methylprednisolone (Methylprednisolone 40 Mg/Ml Vial) 40 mg IV Q8 [facility] Last Admin: 11/10/20 05:02 Dose: 40 mg Documented by: Nicotine (Nicotine 21 Mg Patch) 21 mg TD DAILY [facility] Last Admin: 11/10/20 08:39 Dose: 21 mg Documented by: Nicotine Polacrilex (Nicotine Polacrilex 4 Mg Gum) 4 mg PO Q2H PRN PRN PRN Reason: Nicotine Craving Last Admin: 11/09/20 05:04 Dose: 4 mg Documented by: Ondansetron HCl (Ondansetron 4 Mg/2 Ml Vial) 4 mg IV Q8H PRN PRN PRN Reason: NAUSEA/VOMITING Ondansetron HCl (Ondansetron 8 Mg Tablet) 8 mg PO Q8H PRN PRN PRN Reason: NAUSEA Phenobarbital (Phenobarbital 32.4 Mg Tablet) 64.8 mg PO Q4H [facility]; Taper Stop: 11/13/20 04:44 Last Admin: 11/10/20 08:48 Dose: 64.8 mg Documented by: Senna/Docusate Sodium (Senna/Docusate Sodium 1 Tablet) 2 tablet PO BID PRN PRN PRN Reason: Constipation Sodium Chloride (0.9% Saline Lock 10 Ml Syringe) 10 - 40 ml IV UD PRN PRN Reason: SALINE FLUSH Last Admin: 11/10/20 08:48 Dose: 10 ml Documented by: Thiamine HCl (Thiamine Hydrochloride 100 Mg Tablet) 100 mg PO DAILYCM VIRAL Last Admin: 11/10/20 08:40 Dose: 100 mg Documented by: Trazodone HCl (Trazodone 100 Mg Tablet) 100 mg PO QHS PRN PRN Reason: INSOMNIA Last Admin: 11/09/20 23:03 Dose: 100 mg Documented by: STROKE Vital Signs/Narrative: Vital Signs Temp Pulse Resp BP Pulse Ox 11/10/20 08:48 76 168/85 H 11/10/20 08:31 97.8 F 76 20 H 168/85 H 95 11/10/20 07:45 77 18 92 Medical Necessity - Tobacco Use Smoking Status: Current every day smoker Tobacco Use: Cigarettes Assessment/Plan All Active Problems Hypoxia (Acute) Hypokalemia (Acute) Elevated troponin (Acute) #Acute hypoxic respiratory insufficiency due to COPD exacerbation still wheezing on breathing treatment with bronchodilators IV solumedrol titrate oxygen to maintain sats >90% #COPD exacerbation: as above #Chronic alcohol abuse CIWA protocol and on alcohol withdrawal protocol with phenobarbital. Monitor CIWA score. #Elevated blood sugars: A1c was 5.2 therefore he is not diabetic. resolved. #Elevated troponin Troponin was 0.366 and is trended down to 0.114. May have been due to demand ischemia from shortness of breath. 2D echo showed EF of 60% with stage II diastolic dysfunction and no regional motion abnormalities noted. start on lasix 40mg bid. #nicotine dependence: Still smokes about 2 packs daily. Counseled to quit. Nicotine patch 21 mg daily. DVT prophylaxis: lovenox Disposition: for likely dc home tomorrow Inpatient E&M: 52261 [facility]s Hosp L2
[2020-11-10] MEDS: Furosemide 40 MG/4 ML Vial IV ×2 (12:42→18:04)
[2020-11-10] MEDS: traZODone 100 MG Tablet PO (22:58)
[2020-11-11] VITALS (10 sets, daily range): BP systolic 135–159; BP diastolic 83–103; PULSE 64–95; RESP 16–20; TEMP 36.3–36.6; O2SAT 91–97
[2020-11-11] MEDS: Phenobarbital 32.4 MG Tablet 64.8 MG PO ×3 (01:58→10:15)
[2020-11-11 05:30] LABS: Hematocrit 44.7 % (40-54); Hemoglobin 14.6 g/dL (13.0-16.5); Mean Corp Hgb Conc 32.7 g/dL (32-36); Mean Corpuscular Hgb 31.6 pg (27.0-32.0); Mean Corpuscular Volume 96.8 fL (80-94); POSITIVE COUNT YES; POSITIVE MORPHOLOGY YES; Platelet Count 270 K/mm3 (150-450); RBC Distribution Width CV 14.1 % (11.6-14.6); Red Blood Count 4.62 M/mm3 (4.6-6.2); White Blood Count 12.7 K/mm3 (4.4-11.0)
[2020-11-11 05:39] LABS: Differential Indicated MANUAL DIFF
[2020-11-11 05:46] LABS: Anion Gap 6 (5-15); BUN 32 mg/dL (7-18); BUN/Creat Ratio 54.5 RATIO (10-20); Calcium,Total 9.1 mg/dL (8.5-10.1); Chloride 103 mmol/L (98-107); Creatinine, Serum 0.59 mg/dL (0.70-1.30); EST Glomerular Filtration Rate 147 mL/min (>60); Est Glom Filt Rate - Afr Amer 177 mL/min (>60); Estimated Creatinine Clearance 86.85 ml/min; Glucose 138 mg/dL (74-106); Potassium 4.1 mmol/L (3.5-5.1); Sodium Level 137 mmol/L (136-145)
[2020-11-11] MEDS: 0.9% Saline Lock 10 ML Syringe IV ×2 (06:07→08:31)
[2020-11-11] MEDS: Acetaminophen 500 MG Tablet 1000 MG PO (06:08)
[2020-11-11 06:09] LABS: Absolute Lymphocyte Count 2.92 X10^3/uL (0.83-4.51); Absolute Neutrophil Count 9.1 X10^3/uL (2.0-7.7); Lymphocyte 23 % (19-41); Metamyelocyte 2 % (0-1); Monocyte 3 % (0-10); Neutrophil-Band 2 % (0-5); Neutrophil-Segmented 70 % (47-70); Platelet Estimate ADEQUATE (ADEQ); Red Cell Morphology NORM C+C NORMAL (NORM C&C); Total Cells Counted 100 (MANUAL DIFF)
[2020-11-11] MEDS: Enoxaparin 40 MG/0.4 ML Syringe SC (06:09)
[2020-11-11] MEDS: Ipratropium/Albuterol Sulfate 3 ML AMPUL.NEB INHALATION ×2 (06:57→15:08)
[2020-11-11] MEDS: Folic Acid 1 MG Tablet PO (08:28)
[2020-11-11] MEDS: Furosemide 40 MG/4 ML Vial IV (08:28)
[2020-11-11] MEDS: Thiamine Hydrochloride 100 MG Tablet PO (08:28)
--- NOTE | 2020-11-11 11:56 | DCINST_ITS ---
- Discharge Diagnoses Current Active Problems: Current Active and Chronic Problems Hypoxia (Acute) COPD exacerbation (Chronic) Nicotine dependence (Chronic) Alcohol use disorder (Chronic) Hypokalemia (Acute) Elevated troponin (Acute) You will use the following diet at home:: Cardiac Your food should be the consistency of: Regular Your liquids should be the consistency of: Regular/Thin Discharge Activity: Return to Normal Activity Weight Bearing Status: Weight bearing as tolerated Call your doctor if you observe: Fever of 101 or Higher, Shortness of breath, Dizziness Instructions: Treatments for COPD, Diagnosing COPD Additional Instructions: counseled to quit smoking Allergies/Adverse Reactions: Allergies No Known Allergies Allergy (Verified 11/07/20 14:38) Medications to take at Discharge Albuterol IH (ProAir) [Proair Hfa] 1 - 2 puff INHALATION Q4H PRN PRN #1 inhaler 11/11/20 Nicotine [Nicoderm Cq] 21 mg TD DAILY #30 patch 11/11/20 predniSONE tablet 40 mg PO DAILY 5 Days #10 tab 11/11/20 The following prescriptions were given: Nicotine [Nicoderm Cq] 21 mg TD DAILY #30 patch Transmission Status: Pending to [facility] #30 predniSONE tablet 40 mg PO DAILY 5 Days #10 tab Transmission Status: Pending to [facility] #30 Albuterol IH (ProAir) [Proair Hfa] 1 - 2 puff INHALATION Q4H PRN PRN #1 inhaler PRN Reason: Sob &/Or Wheezing Transmission Status: Pending to [facility] #30 Primary Care Physician: Toy Rabago MD [STAFF PHYSICIAN] - Please follow up with your Primary Care Physician in: 1-2 weeks Test Results: Test results from this visit will be discussed in further detail at your follow- up appointment, if applicable. Proposed Discharge Date: 11/11/20
--- NOTE | 2020-11-11 12:01 | DS.PCM_ITS ---
Discharge Date and Diagnosis - Problem List Patient Problems: Active and Suspected Problems Hypoxia (Acute) Hypokalemia (Acute) Elevated troponin (Acute) Date of Admission: 11/07/20 Date of Discharge: 11/11/20 - Primary Discharge Diagnosis Acute Problems: Active Problems Hypoxia (Acute) Hypokalemia (Acute) Elevated troponin (Acute) acute COPD exacerbation - Secondary Discharge Diagnosis Chronic Problems: Chronic Problems COPD exacerbation (Chronic) Nicotine dependence (Chronic) Alcohol use disorder (Chronic) Hospital Course and Treatment Imaging Results: Diagnostic Data Chest X-Ray 11/07/20 15:43 IMPRESSION: No acute cardiopulmonary findings or changes. Negative for consolidation, atelectasis, cardiomegaly or pleural effusion. Electronically Signed: Julia Jacob MD at 17:00 EDT , Service support , Diagnostic Data Chest X-Ray 11/07/20 15:43 IMPRESSION: No acute cardiopulmonary findings or changes. Negative for consolidation, atelectasis, cardiomegaly or pleural effusion. Electronically Signed: Julia Jacob MD at 17:00 EDT , Service support , Operations: None Procedures: None Summary of Care Provided: The patient is a 65 year old M with a past medical history of chronic back pain, chronic nicotine use and alcohol use disorder who came into the ED with a complaint of shortness of breath, cough and generalized aches which have been going on for about 3 days. He had not seen a physician about 25 years and he was not on any medication. Chest x-ray showed no acute cardiopulmonary findings and EKG showed no acute ST changes. Initial troponin was 0.366. Is admitted and managed for acute hypoxic respiratory sufficiency due to COPD exacerbation. He was treated with IV Solu-Medrol and breathing treatments with bronchodilators. 2D echo was ordered which showed EF of 60% with stage II diastolic dysfunction and no regional wall motion abnormalities. Shortness of breath gradually improved and patient felt better. He was counseled to quit smoking as patient said he still smokes about 2 packs of cigarettes daily. He remained stable and was discharged home on 11/11/2020. Walking pulse ox showed that patient did not qualify for oxygen. He was discharged with a prescription for p.o. prednisone 40 mg daily for 5 days and an albuterol inhaler. He was also discharged with a prescription for nicotine patch. He is to follow-up with primary care doctor in 1 to 2 weeks. Patient seen and examined prior to discharge. No complaints. Review systems otherwise negative. Labs and vitals reviewed. Home medication reviewed and reconciled. O/E: Vital Signs Temp Pulse Resp BP Pulse Ox 97.9 F 70 18 159/103 H 96 11/11/20 09:30 11/11/20 11:46 11/11/20 09:30 11/11/20 09:30 11/11/20 09:30 [] General: Alert, Oriented x3, Cooperative HEENT: Atraumatic, PERRLA, EOMI, Normocephalic Oral: Dry Mucosa Neck: Supple, No JVD, Negative Carotid Bruits Lungs: - - diminished breath sounds bibasally, with mild wheezing. no crackles. On 2L of oxygen by nasal canula; was successfully weaned off oxygen. Cardiovascular: Regular rate, Regular Rhythm, Normal S1, Normal S2, No murmurs Abdomen: Bowel Sounds Present, Soft, Non Tender, Non-Distended, No Hepato- splenomegaly Extremities: No clubbing, No cyanosis, No edema, Capillary Refill Less than 3 Seconds Skin: No rashes, No breakdown Musculoskeletal: No Tenderness to Palpation of Joints or Extremities Lymphatic: No Cervical, Supraclavicular, or Inguinal Adenopathy Neurological: Cranial nerves II-XII grossly intact, Neuro grossly intact, Motor Exam 5/5 strength throughout Psych/Mental Status: Normal Affect, Appropriate, Alert and oriented to time, place, person, mood and affect Plan is for discharge home today. Patient Problems: Active and Suspected Problems Hypoxia (Acute) Hypokalemia (Acute) Elevated troponin (Acute) - Physical Exam Vitals/I&O's: Vital Signs Temp Pulse Resp BP Pulse Ox 97.9 F 70 18 159/103 H 96 11/11/20 09:30 11/11/20 11:46 11/11/20 09:30 11/11/20 09:30 11/11/20 09:30 Oxygen Flow Rate (L/min) [ 0 AMBULATING on Room Air] Oxygen Flow Rate (L/min) [At 0 REST on Room Air] Oxygen Flow Rate (L/min) 2 Oxygen Delivery Method Room Air Weight: 317 lb 7.45 oz Body Mass Index (BMI) 40.6 Intake and Output for Last 24 Hours 11/09/20 11/10/20 11/11/20 23:59 23:59 23:59 Intake Total 1160 / 1460 1830 / 2130 780 / 780 Output Total 1200 / 1900 2600 / 3950 3100 / 3100 Balance -40 / -440 -770 / -1820 -2320 / -2320 Microbiology Past 72 Hours 11/07/20 16:40 Blood Culture (Wb) - Anticubital Right Blood Culture - Preliminary No growth in 48 hours. 11/07/20 17:00 Blood Culture (Wb) - Anticubital Left Blood Culture - Preliminary No growth in 48 hours. Laboratory Results 11/11/20 05:18: WBC 12.7 H, RBC 4.62, Hgb 14.6, Hct 44.7, MCV 96.8 H, MCH 31.6, MCHC 32.7, RDW Std Deviation 51.0 H, RDW Coeff of Isaura 14.1, Plt Count 270, MPV 9.0, Neut % (Auto) Not Reportable, Absolute Neuts (auto) 9.1 H, Absolute Lymphs (auto) 2.92, Total Counted 100, Neutrophils % (Manual) 70, Band Neutrophils % 2, Lymphocytes % (Manual) 23, Monocytes % (Manual) 3, Metamyelocytes % 2 H, Diff Path Review December, Platelet Estimate ADEQUATE, RBC Morphology NORM C+C 11/11/20 05:18: Sodium 137, Potassium 4.1, Chloride 103, Carbon Dioxide 28.0, Anion Gap 6, BUN 32 H, Creatinine 0.59 L, Estim Creat Clear Calc 86.85, Est GFR (MDRD) Af Amer 177, Est GFR (MDRD) Non-Af 147, BUN/Creatinine Ratio 54.5 H, Glucose 138 H, Calcium 9.1 Current Medications Acetaminophen (Acetaminophen 500 Mg Tablet) 1,000 mg PO TID [facility] Last Admin: 11/11/20 06:08 Dose: 1,000 mg Documented by: Al Hydroxide/Mg Hydroxide (Mag Hydrox/Al Hydrox/Simeth 30 Ml Udc) 30 ml PO Q6H PRN PRN PRN Reason: Gastric Burning Albuterol/Ipratropium (Ipratropium/Albuterol Sulfate 3 Ml Ampul.Neb) 3 ml INHALATION Q4HWA.RT [facility] Last Admin: 11/11/20 06:57 Dose: 3 ml Documented by: Dicyclomine HCl (Dicyclomine 10 Mg Capsule) 20 mg PO Q6H PRN PRN PRN Reason: abdominal discomfort Enoxaparin Sodium (Enoxaparin 40 Mg/0.4 Ml Syringe) 40 mg SC DAILY@0600 [facility] Last Admin: 11/11/20 06:09 Dose: 40 mg Documented by: Folic Acid (Folic Acid 1 Mg Tablet) 1 mg PO DAILY@0800 [facility] Last Admin: 11/11/20 08:28 Dose: 1 mg Documented by: Furosemide (Furosemide 40 Mg/4 Ml Vial) 40 mg IV BID@1000,1800 [facility] Last Admin: 11/11/20 08:28 Dose: 40 mg Documented by: Gabapentin (Gabapentin 300 Mg Capsule) 300 mg PO Q8H PRN PRN PRN Reason: moderate to severe anxiety Hydralazine HCl (Hydralazine 20 Mg/Ml Vial) 10 mg IV Q6H PRN PRN PRN Reason: BLOOD PRESSURE Last Admin: 11/10/20 18:14 Dose: 10 mg Documented by: Hydroxyzine Pamoate (Hydroxyzine Mary 25 Mg Capsule) 50 mg PO Q4H PRN PRN PRN Reason: mild anxiety Azithromycin 500 mg/ Dextrose 255 mls @ 250 mls/hr IV Q24@2200 [facility] Last Infusion: 11/10/20 23:03 Dose: Infused Documented by: Loperamide HCl (Loperamide 2 Mg Capsule) 2 mg PO Q4H PRN PRN PRN Reason: LOOSE STOOLS Methylprednisolone (Methylprednisolone 40 Mg/Ml Vial) 40 mg IV Q8 [facility] Last Admin: 11/11/20 06:07 Dose: 40 mg Documented by: Nicotine (Nicotine 21 Mg Patch) 21 mg TD DAILY [facility] Last Admin: 11/11/20 08:28 Dose: 21 mg Documented by: Nicotine Polacrilex (Nicotine Polacrilex 4 Mg Gum) 4 mg PO Q2H PRN PRN PRN Reason: Nicotine Craving Last Admin: 11/09/20 05:04 Dose: 4 mg Documented by: Ondansetron HCl (Ondansetron 4 Mg/2 Ml Vial) 4 mg IV Q8H PRN PRN PRN Reason: NAUSEA/VOMITING Ondansetron HCl (Ondansetron 8 Mg Tablet) 8 mg PO Q8H PRN PRN PRN Reason: NAUSEA Phenobarbital (Phenobarbital 32.4 Mg Tablet) 64.8 mg PO Q6H VIRAL; Taper Stop: 11/13/20 04:44 Last Admin: 11/11/20 10:15 Dose: 64.8 mg Documented by: Senna/Docusate Sodium (Senna/Docusate Sodium 1 Tablet) 2 tablet PO BID PRN PRN PRN Reason: Constipation Sodium Chloride (0.9% Saline Lock 10 Ml Syringe) 10 - 40 ml IV UD PRN PRN Reason: SALINE FLUSH Last Admin: 11/11/20 08:31 Dose: 10 ml Documented by: Thiamine HCl (Thiamine Hydrochloride 100 Mg Tablet) 100 mg PO DAILYCM VIRAL Last Admin: 11/11/20 08:28 Dose: 100 mg Documented by: Trazodone HCl (Trazodone 100 Mg Tablet) 100 mg PO QHS PRN PRN Reason: INSOMNIA Last Admin: 11/10/20 22:58 Dose: 100 mg Documented by: Discharge Diet: Low fat/ Low Cholesterol Discharge Activity: Return to Normal Activity Weight Bearing Status: Weight bearing as tolerated Call your doctor if you observe: Fever of 101 or Higher, Shortness of breath, Dizziness Home Medications: Medications to take at Discharge Albuterol IH (ProAir) [Proair Hfa] 1 - 2 puff INHALATION Q4H PRN PRN #1 inhaler 11/11/20 Nicotine [Nicoderm Cq] 21 mg TD DAILY #30 patch 11/11/20 predniSONE tablet 40 mg PO DAILY 5 Days #10 tab 11/11/20 Following Prescriptions Were Given to Patient: Nicotine [Nicoderm Cq] 21 mg TD DAILY #30 patch Transmission Status: Received by [facility]30 predniSONE tablet 40 mg PO DAILY 5 Days #10 tab Transmission Status: Received by [facility]30 Albuterol IH (ProAir) [Proair Hfa] 1 - 2 puff INHALATION Q4H PRN PRN #1 inhaler PRN Reason: Sob &/Or Wheezing Transmission Status: Received by [facility] Primary Care Physician: Toy Rabago MD [STAFF PHYSICIAN] - Please follow up with your Primary Care Physician in: 1-2 weeks Patient Instructions: Diagnosing COPD, Treatments for COPD Disposition: Home Minutes spent on discharge:: 35 Patient Condition:: Stable Medical Necessity - Tobacco Use Smoking Status: Current every day smoker Tobacco Use: Cigarettes Meaningful Use Info Meaningful Use Diagnoses (Choose all that apply): None applicable Inpatient E&M: 78441 Disch Hosp
--- NOTE | 2020-11-11 13:01 | CASEMGMT ---
TASHI spoke with Aliza from [facility]. She was here to see patient, but she was not aware TASHI already talked with patient about his alcohol use. She made an appt for him with [facility] for . Aliza did not see patient since arrangements have been made. Reina BUENO MSW
--- NOTE | 2020-11-11 13:46 | PHA.DC.MC ---
Pharmacy Service has performed discharge medication reconciliation and counseling for this patient. 1. ALBUTEROL INHALER INHALE 1-2 PUFFS Q4H PRN SOB/WHEEZING 2. PREDNISONE 40MG PO DAILY X 5 DAYS 3. NICOTINE PATCH 21MG TD DAILY The patient's discharge medication list was reviewed for discrepancies and discrepancies were resolved. Home Medications Albuterol IH (ProAir) [Proair Hfa] 1 - 2 puff INHALATION Q4H PRN PRN #1 inhaler 11/11/20 Nicotine [Nicoderm Cq] 21 mg TD DAILY #30 patch 11/11/20 predniSONE tablet 40 mg PO DAILY 5 Days #10 tab 11/11/20 The patient was counseled on the following discharge medications and changes in medications for homegoing were reviewed. The Reason for Use, instructions for use, and potential side effects were reviewed for all new medications. The patient's questions regarding all of their medications were answered. The patient was able to verbally demonstrate an understanding of their discharge medications.
[2020-11-11 14:07] LABS: Pathologist Review Reviewed
== END 2020-11-11 15:40 | disposition home or self-care (01) | DRG 191 ==
LOC: ED 16:16 → PCU 17:58
PROVIDERS: Family Medicine; Admitting Provider Internal Medicine; Emergency Provider Emergency Medicine; Visit Provider Student in an Organized Health Care Education/Training Program
DX: J44.1 Chronic obstructive pulmonary disease with (acute) exacerbation (principal); I24.8 Other forms of acute ischemic heart disease; R06.89 Other abnormalities of breathing; R09.02 Hypoxemia; F17.210 Nicotine dependence, cigarettes, uncomplicated; R77.8 Other specified abnormalities of plasma proteins; E87.6 Hypokalemia; F10.10 Alcohol abuse, uncomplicated; R73.09 Other abnormal glucose
CPT/HCPCS: 36415; 71045; 80048; 80053; 81001; 83036; 83605; 83880; 84484; 85025; 87040; 87426; 87633; 93005; 93306; 94640; 94760; 97802; 99251; 99285; 99406; J7040; J7050; Q9957; A4216; C8929; G0463; J1940

== ENCOUNTER 2021-11-28 16:52 | Emergency (ER) | payer MEDICARE, SELFPAY ==
[2021-11-28] VITALS (10 sets, daily range): BP systolic 115–180; BP diastolic 60–142; PULSE 87–93; RESP 18–23; TEMP 36.6–37.7; O2SAT 95–100; BMI 48.4
--- NOTE | 2021-11-28 17:03 | EKG12_ITS ---
Test Reason : DECREASED LOC Blood Pressure : / mmHG Vent. Rate : 092 BPM Atrial Rate : 092 BPM P-R Int : 150 ms QRS Dur : 078 ms QT Int : 390 ms P-R-T Axes : 044 028 057 degrees QTc Int : 482 ms Normal sinus rhythm with sinus arrhythmia Prolonged QT Abnormal ECG Confirmed by PAOLO BHANDARI, CARLA ([id number]), editorial intern CURTIS MURRAY ([id number]) on 12/03/2021 10:41:16 AM Referred By: FERNANDA Confirmed By:CARLA BOONE MD
--- NOTE | 2021-11-28 17:03 | CT_ITS ---
We are attempting to reach an attending provider to discuss findings. An addendum with communication details will be sent when the communication is complete. HISTORY: AMS TECHNIQUE: Multiple axial images were obtained of the brain without intravenous contrast. A radiation dose optimization technique was used for this scan. IV Contrast dosage and agent: None. COMPARISON: None FINDINGS: # of images incl. paperwork: [id number] PARANASAL SINUSES AND MASTOID AIR CELLS: Minimal right maxillary sinus mucoperiosteal disease. PARENCHYMA: Multiple high attenuation foci at the left hemispheric campos-white junction with adjacent vasogenic edema. The largest measures up to 2.2 cm in the left frontotemporal lobe. There is mass effect on the adjacent lateral ventricles with 5 mm midline shift left to right. Posterior fossa unremarkable. CSF SPACES: There is no hydrocephalus. CALVARIUM: Intact. 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 Individualized dose optimization techniques were used for this CT. at 1845 Reported and signed by: Brody Cross MD Electronically Signed: Brody Cross MD at 18:44 EDT ,
--- NOTE | 2021-11-28 17:05 | EDS_ITS ---
HPI History of Present Illness Chief Complaint: General Illness Informant: patient Narrative Narrative: Patient is a 66-year-old male with history of COPD, chronic back pain, nicotine use and alcohol use disorder presenting for altered mental status. Patient not been seen since at least November 21. Family went and checked on him because he did not pay his rent this month. He was found on the ground, confused and minimally responsive. EMS was called and he was brought to the emergency room. EMS states that there is urine everywhere around him and he looked like he been laying on his right side for very long time. Patient is barely able to state his full name and not able to provide further history. Patient was 86% on room air when EMS arrived is not clear if he wears oxygen at home but he was not wearing oxygen when they arrived. His glucose was 140. Patient lives alone. He has a but they are currently . Family told [facility] office who was called for welfare check that patient is not compliant with any medical treatment. [facility] Medical History (Updated 11/28/21 @ 18:[address] Akanksha May, ) COPD (chronic obstructive pulmonary disease) Home Medications NK 11/28/21 [History Last Taken Unknown] Allergy/AdvReac Type Severity Reaction Status Date / Time No Known Allergies Allergy Verified 11/28/21 16:53 Social History Smoking Status: Current every day smoker tobacco type: cigarettes ROS ROS ED Review of Systems ROS Unobtainable: due to encephalopathy EXAM Physical Exam Const Vital Signs: 11/28/21 16:53 11/28/21 17:00 11/28/21 17:20 Temperature 98 F 99.2 F H Temperature Source Temporal Core Pulse Rate 92 92 Respiratory Rate 18 18 Respiratory Effort Normal Non-Labored Blood Pressure 149/102 H Blood Pressure Mean 117 Pulse Ox 95 95 Oxygen Delivery Method Nasal Cannula Nasal Cannula Oxygen Flow Rate (L/min) 3 3 11/28/21 17:36 11/28/21 17:38 11/28/21 18:15 Temperature 99.6 F H Temperature Source Core Pulse Rate 88 90 Respiratory Rate 22 H Respiratory Effort Blood Pressure 136/83 H 136/83 H 180/107 H Blood Pressure Mean 100 100 131 Pulse Ox 98 99 Oxygen Delivery Method Nasal Cannula Nasal Cannula Oxygen Flow Rate (L/min) 4 3 11/28/21 18:21 11/28/21 18:25 11/28/21 18:28 Temperature 98.4 F Temperature Source Temporal Pulse Rate 93 91 Respiratory Rate 21 H 21 H Respiratory Effort Blood Pressure 173/90 H 160/142 H Blood Pressure Mean 117 148 Pulse Ox 100 99 99 Oxygen Delivery Method Nasal Cannula Nasal Cannula Nasal Cannula Oxygen Flow Rate (L/min) 4 4 4 11/28/21 18:31 11/28/21 18:40 Temperature 99.8 F H 99.8 F H Temperature Source Core Pulse Rate 88 87 Respiratory Rate 23 H 18 Respiratory Effort Blood Pressure 115/66 115/60 Blood Pressure Mean 82 78 Pulse Ox 99 97 Oxygen Delivery Method Nasal Cannula Oxygen Flow Rate (L/min) 4 Positive well nourished, well developed, obese and unkempt General Appearance ED: unkempt and well developed Nutritional Appearance: obese HEENT Reports TM's clear and dry mucous membranes HEENT Narrative: No hemotympanum. No septal hematoma. Patient has a 4 cm x 2 cm irregular area of fluctuance and swelling behind the left ear. Not sure if this is chronic or traumatic in nature. No overlying erythema or abrasions appreciated. Negative for tenderness Tympanic Membrane ED: Yes TM's clear Mouth ED: Yes dry mucous membranes Mouth: dry mucous membranes Eyes PERRL and EOMs intact bilaterally Neck supple General: Negative for tenderness Resp clear to auscultation bilaterally Resp Narrative: Tachypneic Cardio regular rate, regular rhythm and no murmurs Rate: other Other Details: Dopplerable distal pulses- radial GI normal to inspection, nondistended, normoactive bowel sounds GI Narrative: Protuberant abdomen Palpation: soft Back/Spine Back/Spine Narrative: No midline tenderness. Extremity General Extremety ED: Negative for edema or tenderness General Extremity: Negative for edema Neuro CN's II-XII intact bilaterally Neuro Narrative: Patient encephalopathic. Difficulty following commands but does seem to move all extremities spontaneously. Is able to say his name but speech is slurred. [place] Coma Scale: document GCS findings Spontaneous Localizes to Pain Confused 13 Sensorium / Orientation: alert Speech: speech abnormal Details: Positive for slurred Motor Exam: general weakness Psych Appearance: unkempt Skin Skin Narrative: Patient has pressure wounds scattered throughout the right torso, buttocks and side. They are in principal looks to be can tops and a square elena on his lower abdomen/flank impression. There is sloughing of the skin on the right buttocks. Skin is mottled especially the feet and hands. MDM MDM MDM Narrative Medical decision making narrative: Patient is evaluated after he is found down. Patient is encephalopathic with no focal neurologic deficits. He was on the ground for unknown amount of time. Is not clear if he fell or what exactly happ ened. I was unable to get a hold of his estranged or mother but she herself had previously spoken to family members which is where the history came from. CT of the brain interpreted by myself does show intraparenchymal hemorrhage in the left temporal region with a possible small amount of shift. I suspect this is subacute versus acute. Spoke with the [facility] transfer line and patient will be transferred to [facility] ER for further evaluation. He will be treated as a trauma until this can be determined otherwise. CT of the neck is added on. Patient is accepted by Dr. Galvan. Patient is given a dose of Rocephin for UTI. Blood cultures and urine cultures were obtained and are pending. We will try to maintain blood pressure below 140 systolic. Social work was able to inform the patient's and mother of the plan of care. Lab Data Attestation: I reviewed the patient's lab results. Labs: Laboratory Results - last 24 hr 11/28/21 11/28/21 11/28/21 17:00 17:00 17:00 WBC 9.9 RBC 5.07 Hgb 16.4 Hct 48.5 MCV 95.7 H MCH 32.3 H MCHC 33.8 RDW Std Deviation 47.0 H RDW Coeff of Isaura 13.2 Plt Count 287 MPV 8.7 Immature Gran % (Auto) 0.600 Neut % (Auto) 72.7 H Lymph % (Auto) 14.4 L [place] % (Auto) 10.0 Eos % (Auto) 1.8 Baso % (Auto) 0.5 Absolute Neuts (auto) 7.2 Absolute Lymphs (auto) 1.42 Nucleated RBC % 0 PT 14.2 INR 1.2 Sodium 138 Potassium 3.9 Chloride 103 Carbon Dioxide 27.0 Anion Gap 8 BUN 25 H Creatinine 0.85 Estim Creat Clear Calc 92.56 Est GFR (MDRD) Af Amer 116 Est GFR (MDRD) Non-Af 96 BUN/Creatinine Ratio 29.4 H Glucose 151 H Lactic Acid Calcium 8.9 Total Creatine Kinase 1658 H Troponin I High Sens 39 B-Natriuretic Peptide Urine Color Urine Clarity Urine pH Ur Specific [place] Urine Protein Urine Glucose (UA) Urine Ketones Urine Occult Blood Urine Nitrite Urine Bilirubin Urine Urobilinogen Ur Leukocyte Esterase Urine RBC Urine WBC Ur Squamous Epith Cells Urine Bacteria Urine Mucus Urine Opiates Screen Urine Methadone Screen Ur Barbiturates Screen Ur Phencyclidine Scrn Ur Amphetamines Screen MDMA (Ecstasy) Screen U Benzodiazepines Scrn Urine Cocaine Screen U Cannabinoids Screen Ur Drug Screen Comment Ethyl Alcohol POC Glucose 11/28/21 11/28/21 11/28/21 17:00 17:00 17:00 WBC RBC Hgb Hct MCV MCH MCHC RDW Std Deviation RDW Coeff of Isaura Plt Count MPV Immature Gran % (Auto) Neut % (Auto) Lymph % (Auto) [place] % (Auto) Eos % (Auto) Baso % (Auto) Absolute Neuts (auto) Absolute Lymphs (auto) Nucleated RBC % PT INR Sodium Potassium Chloride Carbon Dioxide Anion Gap BUN Creatinine Estim Creat Clear Calc Est GFR (MDRD) Af Amer Est GFR (MDRD) Non-Af BUN/Creatinine Ratio Glucose Lactic Acid 1.7 Calcium Total Creatine Kinase Troponin I High Sens B-Natriuretic Peptide 46.3 Urine Color Urine Clarity Urine pH Ur Specific [place] Urine Protein Urine Glucose (UA) Urine Ketones Urine Occult Blood Urine Nitrite Urine Bilirubin Urine Urobilinogen Ur Leukocyte Esterase Urine RBC Urine WBC Ur Squamous Epith Cells Urine Bacteria Urine Mucus Urine Opiates Screen Urine Methadone Screen Ur Barbiturates Screen Ur Phencyclidine Scrn Ur Amphetamines Screen MDMA (Ecstasy) Screen U Benzodiazepines Scrn Urine Cocaine Screen U Cannabinoids Screen Ur Drug Screen Comment Ethyl Alcohol < 3.0 POC Glucose 11/28/21 11/28/21 11/28/21 17:09 17:10 17:10 WBC RBC Hgb Hct MCV MCH MCHC RDW Std Deviation RDW Coeff of Isaura Plt Count MPV Immature Gran % (Auto) Neut % (Auto) Lymph % (Auto) [place] % (Auto) Eos % (Auto) Baso % (Auto) Absolute Neuts (auto) Absolute Lymphs (auto) Nucleated RBC % PT INR Sodium Potassium Chloride Carbon Dioxide Anion Gap BUN Creatinine Estim Creat Clear Calc Est GFR (MDRD) Af Amer Est GFR (MDRD) Non-Af BUN/Creatinine Ratio Glucose Lactic Acid Calcium Total Creatine Kinase Troponin I High Sens B-Natriuretic Peptide Urine Color Yellow Urine Clarity Sl. Cloudy Urine pH 6.0 Ur Specific [place] 1.020 Urine Protein 30 H Urine Glucose (UA) Normal Urine Ketones 50 H Urine Occult Blood 50 H Urine Nitrite Positive H Urine Bilirubin Negative Urine Urobilinogen 1 H Ur Leukocyte Esterase 100 H Urine RBC 0 SEEN Urine WBC 10-25 SEEN Ur Squamous Epith Cells 0 SEEN Urine Bacteria 1+ Urine Mucus 0 SEEN Urine Opiates Screen NEGATIVE Urine Methadone Screen NEGATIVE Ur Barbiturates Screen NEGATIVE Ur Phencyclidine Scrn NEGATIVE Ur Amphetamines Screen NEGATIVE MDMA (Ecstasy) Screen NEGATIVE U Benzodiazepines Scrn NEGATIVE Urine Cocaine Screen NEGATIVE U Cannabinoids Screen NEGATIVE Ur Drug Screen Comment Ethyl Alcohol POC Glucose 157 H ABG Data ABG results: ABG 11/28/21 17:26 Specimen Type ART Sample Site R Brach pH 7.44 Bicarbonate Actual 22.6 Total CO2 24 Base Excess -2 O2 Saturation 96 ABG pCO2 33.7 L ABG pO2 81 O2 Delivery Device Cannula Liter Flow 4.0 Rhythm Strip Rhythm Strip: Sinus Rhythm Rate: 92 Ectopy: None EKG Initial EKG: Attestation: I personally reviewed and interpreted this EKG as follows: Comments: Normal sinus rhythm rate 92 with sinus arrhythmia Normal axis Normal CO and QRS QTC is [address] segments Discharge Plan Triage Chief Complaint: General Illness ED Provider: Akanksha May Dx/Rx/DC Orders Clinical Impression: Intracranial hemorrhage, Hypoxia, Encephalopathy acute, Rhabdomyolysis Prescriptions: No Action NK RF: 0 Primary Care Provider: Care Physician,No Primary Referrals: Care Physician,No Primary [Primary Care Provider] - Disposition Disposition: Transfer to Another Type [facility]
[2021-11-28] MEDS: 0.9% Normal Saline 1,000 ML 1000 ML IV (17:13)
[2021-11-28 17:16] LABS: Bedside Glucose 157 mg/dL (74-106)
[2021-11-28 17:21] LABS: Absolute Lymphocyte Count 1.42 X10^3/uL (0.83-4.51); Absolute Neutrophil Count 7.2 X10^3/uL (2.0-7.7); Basophil# 0.05 X10^3/uL; Basophil% 0.5 % (0-1); Eosinophil# 0.18 X10^3/uL; Eosinophils% 1.8 % (0-5); Hematocrit 48.5 % (40-54); Hemoglobin 16.4 g/dL (13.0-16.5); Lymphocyte # 1.42 X10^3/ul (0.83-4.51); Lymphocyte % 14.4 % (19-41); Mean Corp Hgb Conc 33.8 g/dL (32-36); Mean Corpuscular Hgb 32.3 pg (27.0-32.0); Mean Corpuscular Volume 95.7 fL (80-94); Mean Platelet Vol. 8.7 fl (6.2-12.0); Monocyte# 0.99 X10^3/uL; NRBC Flagged by Analyzer 0 % (0-5); Neutrophil # 7.19 X10^3/uL (2.7-7.7); Neutrophil % 72.7 % (47-70); Platelet Count 287 K/mm3 (150-450); RBC Distribution Width CV 13.2 % (11.6-14.6); Red Blood Count 5.07 M/mm3 (4.6-6.2); White Blood Count 9.9 K/mm3 (4.4-11.0)
[2021-11-28 17:23] LABS: Mucous, Urine 0 SEEN /hpf (<or=2+); Red Blood Cells-Urine 0 SEEN /hpf (0-5); Squamous Epithelial Cells - UA 0 SEEN /hpf (0-5)
[2021-11-28 17:30] LABS: Color, Urine Yellow (Yellow); Glucose, Dipstick Normal (Normal); Ketone-Dipstick 50 mg/dl (Negative); Leukocyte Esterase-Dipstick 100 /ul (Negative); Nitrite-Dipstick Positive (Negative); Occult Blood-Urine 50 /ul (Negative); Protein-Dipstick 30 mg/dl (Negative); Urine Bilirubin Dipstick Negative (Negative); Urine Clarity Sl. Cloudy (Clear); Urine Urobilinogen 1 mg/dl (Normal)
[2021-11-28 17:31] LABS: Base Excess -2 mmol/L (-2 to +2); Bicarbonate 22.6 mmol/L (22-26); Blood Gas Specimen Type ART; O2 Delivery Device Cannula; PO2 81 mmHG (75-100); SITE R Brach; SO2 96 % (95-99); Total Carbon Dioxide 24 mmol/L; pCO2 33.7 mmHg (35-45); pH 7.44 (7.35-7.45)
[2021-11-28 17:35] LABS: International Normalized Ratio 1.2; Prothrombin Time (Protime)PT. 14.2 SECONDS (11.7-14.9)
--- NOTE | 2021-11-28 17:40 | CT_ITS ---
HISTORY: trauma EXAMINATION: CT Spine Cervical W/O Contrast Injection TECHNIQUE: Helically acquired images were obtained of the cervical spine. 2D reformatted images were reviewed. A radiation dose optimization technique was used for this scan. IV Contrast dosage and agent: None. COMPARISON: None FINDINGS: VERTEBRAE: No acute fracture. No discrete lytic or blastic abnormality observed. 4 mm retrolisthesis C5 on C6. Normal craniocervical junction and cervicothoracic junction. DISCS and SPINAL CANAL: Degenerative discogenic changes are noted. No critical stenosis. NECK SOFT TISSUES: No prevertebral soft tissue swelling. LUNG APICES: 9 mm noncalcified nodule left apex. CT/Spine Cervical without Contras IMPRESSION: Degenerative changes. No evidence of acute cervical spinal fracture. 9 mm indeterminate nodule left apex. Per Fleischner Society guidelines recommend 3 month follow-up CT, PET/CT or tissue sampling at 3 months. Individualized dose optimization techniques were used for this CT. at 1915 Reported and signed by: Brody Cross MD Electronically Signed: Brody Cross MD at 19:13 EDT Reading Location ID and State: [facility] / [place] Tel , Service support ,
[2021-11-28 17:41] LABS: White Blood Cells 10-25 SEEN /hpf (0-5)
[2021-11-28 17:42] LABS: BNP,B-Type NATRIURETIC PEPTIDE 46.3 pg/mL (0-100)
[2021-11-28 17:42] LABS: Bacteria 1+ /hpf (None Seen)
[2021-11-28 17:49] LABS: Lactic Acid 1.7 mmol/L (0.4-1.9)
[2021-11-28 17:59] LABS: Alcohol, Blood (Medical)-Serum < 3.0 mg/dL
[2021-11-28] MEDS: Ceftriaxone 1 GM/50 ML BAG IV (18:01)
--- NOTE | 2021-11-28 18:04 | CM.ED ---
SW Note Referral Source: office machinery or equipment installer Reason: Safety Concerns regarding patient. TASHI was advised by CLAUDIA BAILEY that patient had been down since 11/21/2021. TASHI spoke to [facility]'s Officer Yvonne [phone] who said that he was called to the house as patient had not paid his [employer] rent, which he does religiously per family, and family was unable to contact him. Officer Natasha did a welfare check. Natasha said that the house is in worse shape and that patient is a hoarder of junk and trash. Yvonne suspected that the trash and junk was 4 1/2 feet tall. Natasha kicked in the back door and crawled over extra windows on the ground to get to patient. Yvonne said that they smelled pneumonia and it appeared to be eating his skin. Yvonne said that a tall boy was embedded into patient's leg. Patient was talking jibberish but occasionally would state yes sir, no sire. Yvonne suspects that patient may have been drinking his own urine. Natasha said that there were alcohol containers but because patient is such a hoarder he was unsure if they were older or new. Patient lives by himself. He is legally to his , Devika, but they live separately and she says we are best friends. Yvonne said that he had to break the front door frame to get patient out of the house. TASHI was advised by that patient is going to be transferred to [facility]. TASHI called patient's , Devika at 5:44 pm. No answer. TASHI called patient's mother, Caitlyn, at 5:44 and left voice mail message. [facility] Officer Natasha provided this scenario writer updated phone number for Devika Sanabria at [phone]. TASHI called Devika Sanabria and advise that patient is in serious condition and being transferred to [facility]. Devika transferred the phone so this scenario writer was able to speak to patient's mother, Caitlyn Sanabria, and advised that patient had a brain bleed and mother said it's a hemorrhage and is being transferred to [facility]. TASHI advised we are waiting on patient to be transported to [facility]. TASHI spoke to ED workers compensation legal secretary Chantal. Transport to be present at 6:30. TASHI called Devika and advised transport is scheduled for 6:30pm. TASHI called Devika Sanabria and advised transport is scheduled for 6:30pm. Devika advised that they will stop by the hospital. TASHI called Clyde at [facility]. TASHI had received message from Dru Conte stating APS needed to be called. TASHI left voice mail advising of the hoarding condition and that patient was transferred to [facility]. TASHI called [facility]. They have no ED social service liaison but do have ED care managers. The care managers in the ED were out of the office.TASHI left voice mail message that this scenario writer was advised of home concerns by the store shopper and EMS thus referral was made to [facility] in [facility]. Plan: APS called. Family updated on the seriousness of the situation and plan to transfer patient to [facility] Rina GRAVES
--- NOTE | 2021-11-28 18:05 | RAD_ITS ---
HISTORY: SOB EXAMINATION/TECHNIQUE: XR Chest 1 View: Portable upright AP chest x-ray COMPARISON: 11/07/20 FINDINGS: LINES/DEVICES: None. LUNGS: No consolidation, edema or effusion. No pneumothorax. MEDIASTINUM AND CARDIOVASCULAR STRUCTURES: Cardiac silhouette not enlarged. Central airways and mediastinal contour are unremarkable. BONES AND SOFT TISSUES: No acute bony abnormalities. RAD/Chest 1 View (Portable) IMPRESSION: No radiographic evidence of acute cardiopulmonary disease. at 1943 Reported and signed by: Brody Cross MD Electronically Signed: Brody Cross MD at 19:42 EDT ,
[2021-11-28 18:08] LABS: Anion Gap 8 (5-15); BUN 25 mg/dL (7-18); BUN/Creat Ratio 29.4 RATIO (10-20); CPK Total, Creatine Kinase 1658 U/L (39-308); Calcium,Total 8.9 mg/dL (8.5-10.1); Chloride 103 mmol/L (98-107); Creatinine, Serum 0.85 mg/dL (0.70-1.30); EST Glomerular Filtration Rate 96 mL/min (>60); Est Glom Filt Rate - Afr Amer 116 mL/min (>60); Estimated Creatinine Clearance 92.56 ml/min; Glucose 151 mg/dL (74-106); Potassium 3.9 mmol/L (3.5-5.1); Sodium Level 138 mmol/L (136-145); Troponin-I HS 39 pg/mL (3.0-78.0)
[2021-11-28 18:09] LABS: Amphetamine Urine VISTA NEGATIVE (<1000 ng/mL); Barbiturate Urine VISTA NEGATIVE (< 200 ng/mL); Benzodiazepine Urine VISTA NEGATIVE (< 200 ng/mL); Cocaine Urine VISTA NEGATIVE (< 300 ng/mL); Ecstacy Urine VISTA NEGATIVE (< 500 ng/mL); Methadone Urine VISTA NEGATIVE (< 300 ng/mL); PCP Urine VISTA NEGATIVE (< 25 ng/mL); THC Urine VISTA NEGATIVE (< 50 ng/mL); Vista UDS pH Range 5
[2021-11-28] MEDS: hydrALAZINE 20 MG/ML Vial IV (18:15)
--- NOTE | 2021-11-28 18:35 | CM.ED ---
11/28/21 18:04 - Case Management - ED by Rina Diaz Acchansa Num: [id number] : 1955 Patient Age: 66 SW Note Referral Source: reconciliation clerk Reason: Safety Concerns regarding patient. TASHI was advised by CLAUDIA BAILEY that patient had been down since 11/21/2021. TASHI spoke to [facility]'s Officer Yvonne [phone] who said that he was called to the house as patient had not paid his [employer] rent, which he does religiously per family, and family was unable to contact him. Officer Natasha did a welfare check. Natasha said that the house is in worse shape and that patient is a hoarder of junk and trash. Yvonne suspected that the trash and junk was 4 1/2 feet tall. Natasha kicked in the back door and crawled over extra windows on the ground to get to patient. Yvonne said that they smelled ammonia and it appeared to be eating his skin. Yvonne said that a tall boy was embedded into patient's leg. Patient was talking jibberish but occasionally would state yes sir, no sire. Yvonne suspects that patient may have been drinking his own urine. Natasha said that there were alcohol containers but because patient is such a hoarder he was unsure if they were older or new. Patient lives by himself. He is legally to his , Devika, but they live separately and she says we are best friends. Yvonne said that he had to break the front door frame to get patient out of the house. TASHI was advised by that patient is going to be transferred to [facility]. TASHI called patient's , Devika at 5:44 pm. No answer. TASHI called patient's mother, Caitlyn, at 5:44 and left voice mail message. [facility] Officer Natasha provided this newspaper writer updated phone number for Devika Sanabria at [phone]. TASHI called Devika Sanabria and advise that patient is in serious condition and being transferred to [facility]. Devika transferred the phone so this newspaper writer was able to speak to patient's mother, Caitlyn Sanabria, and advised that patient had a brain bleed and mother said it's a hemorrhage and is being transferred to [facility]. TASHI advised we are waiting on patient to be transported to [facility]. TASHI spoke to ED legal secretary receptionist Chantal. Transport to be present at 6:30. TASHI called Devika and advised transport is scheduled for 6:30pm. TASHI called Devika Sanabria and advised transport is scheduled for 6:30pm. Devika advised that they will stop by the hospital. TASHI called Clyde at [facility]. TASHI had received message from Dru Conte stating APS needed to be called. TASHI left voice mail advising of the hoarding condition and that patient was transferred to [facility]. TASHI called [facility]. They have no ED outreach and education social worker but do have ED care managers. The care managers in the ED were out of the office.TASHI left voice mail message that this newspaper writer was advised of home concerns by the glaze supervisor and EMS thus referral was made to [facility] in [facility]. Plan: APS called. Family updated on the seriousness of the situation and plan to transfer patient to [facility] Rina GONSALESWS Initialized on 11/28/21 18:04 - END OF NOTE
--- NOTE | 2021-11-28 18:48 | ED.RN ---
attempts to answer questions but unable to understand pt other than name. cannot state birthday or follow commands to assess NIH.
--- NOTE | 2021-11-28 18:52 | ED.RN ---
Natasha TAYLOR called report to [facility] CLAUDIA Sands.
== END 2021-11-28 18:59 | disposition other institution (70) ==
PROVIDERS: Emergency Provider Emergency Medicine; Visit Provider Emergency Medicine
DX: J44.9 Chronic obstructive pulmonary disease, unspecified (principal); I62.9 Nontraumatic intracranial hemorrhage, unspecified; F17.210 Nicotine dependence, cigarettes, uncomplicated; M62.82 Rhabdomyolysis; R09.02 Hypoxemia; G93.40 Encephalopathy, unspecified; N39.0 Urinary tract infection, site not specified
CPT/HCPCS: 36600; 51702; 70450; 71045; 72125; 80048; 80307; 81001; 82077; 82550; 82803; 82962; 83605; 83880; 84484; 85025; 85610; 87040; 87077; 87086; 87088; 87186; 87811; 93005; 96361; 96365; 99285

== ENCOUNTER → 2022-01-08 | Outpatient (REF) | payer SELFPAY ==
[2022-01-08 08:14] LABS: Hematocrit 41.8 % (40-54); Hemoglobin 13.4 g/dL (13.0-16.5); Mean Corp Hgb Conc 32.1 g/dL (32-36); Mean Corpuscular Hgb 30.7 pg (27.0-32.0); Mean Corpuscular Volume 95.7 fL (80-94); Mean Platelet Vol. 8.9 fl (6.2-12.0); Platelet Count 344 K/mm3 (150-450); RBC Distribution Width CV 13.1 % (11.6-14.6); RBC Distribution Width SD 46.3 fl (35.1-43.9); Red Blood Count 4.37 M/mm3 (4.6-6.2)
[2022-01-08 08:32] LABS: Vitamin D,25 Hydroxy 14.6 ng/mL
[2022-01-08 08:50] LABS: International Normalized Ratio 1.8; Prothrombin Time (Protime)PT. 20.6 SECONDS (11.7-14.9)
[2022-01-08 08:57] LABS: ALB/GLOB Ratio 0.9 RATIO (0.9-2.4); AST(SGOT) 28 U/L (15-37); Alanine Aminotransfer ALT/SGPT 43 U/L (16-61); Albumin, Serum 3.4 g/dL (3.2-5.0); Alkaline Phosphatase 79 U/L (45-117); Anion Gap 8 (5-15); BUN 15 mg/dL (7-18); BUN/Creat Ratio 23.7 RATIO (10-20); Calcium,Total 9.4 mg/dL (8.5-10.1); Chloride 106 mmol/L (98-107); Cholesterol 158 mg/dL (200); Creatinine, Serum 0.63 mg/dL (0.70-1.30); EST Glomerular Filtration Rate 134 mL/min (>60); Est Glom Filt Rate - Afr Amer 162 mL/min (>60); Globulin 3.6 g/dL (2.2-4.2); Glucose 112 mg/dL (74-106); High Density Lipoprotein 28 mg/dL; Magnesium 2.2 mg/dL (1.6-2.6); Sodium Level 139 mmol/L (136-145); Thyroid Stim Hormone (TSH) 1.71 uIU/mL (0.358-3.74); Triglycerides 363 mg/dL; Very Low Density Lipoprotein 73 mg/dL (5-40)
[2022-01-08 11:00] LABS: Hemoglobin A1c 6.4 % (3.8-5.6)
== END | disposition home or self-care (01) ==
LOC: OLS.ACW100 05:00
PROVIDERS: Visit Provider Family Medicine
DX: I69.351 Hemiplegia and hemiparesis following cerebral infarction affecting right dominant side (principal); I69.320 Aphasia following cerebral infarction; I10 Essential (primary) hypertension; N39.0 Urinary tract infection, site not specified
CPT/HCPCS: 36415; 80053; 80061; 82306; 83036; 83735; 84443; 85027; 85610

== ENCOUNTER → 2022-01-12 | Outpatient (REF) | payer SELFPAY ==
[2022-01-12 09:12] LABS: Hematocrit 38.8 % (40-54); Hemoglobin 12.4 g/dL (13.0-16.5); Mean Corpuscular Hgb 30.8 pg (27.0-32.0); Mean Corpuscular Volume 96.5 fL (80-94); Mean Platelet Vol. 9.3 fl (6.2-12.0); Platelet Count 303 K/mm3 (150-450); RBC Distribution Width CV 13.4 % (11.6-14.6); RBC Distribution Width SD 47.9 fl (35.1-43.9); Red Blood Count 4.02 M/mm3 (4.6-6.2)
[2022-01-12 09:27] LABS: Anion Gap 7 (5-15); BUN 15 mg/dL (7-18); Calcium,Total 9.2 mg/dL (8.5-10.1); Chloride 104 mmol/L (98-107); EST Glomerular Filtration Rate 142 mL/min (>60); Est Glom Filt Rate - Afr Amer 172 mL/min (>60); Glucose 130 mg/dL (74-106); Potassium 3.9 mmol/L (3.5-5.1); Sodium Level 137 mmol/L (136-145)
[2022-01-12 09:36] LABS: International Normalized Ratio 2.5; Prothrombin Time (Protime)PT. 26.7 SECONDS (11.7-14.9)
== END | disposition home or self-care (01) ==
LOC: OLS.ACW100 05:00
PROVIDERS: Visit Provider Family Medicine
DX: I69.351 Hemiplegia and hemiparesis following cerebral infarction affecting right dominant side (principal); I69.320 Aphasia following cerebral infarction; I10 Essential (primary) hypertension; N39.0 Urinary tract infection, site not specified
CPT/HCPCS: 36415; 80048; 85027; 85610

== ENCOUNTER → 2022-01-15 | Outpatient (REF) | payer SELFPAY ==
[2022-01-15 08:05] LABS: INR Fingerstick 1.7; Prothrombin Time Fingerstick 19.9 SEC (11.7-14.9)
== END | disposition home or self-care (01) ==
LOC: OLS.ACW100 05:00
PROVIDERS: Visit Provider Family Medicine
DX: I69.351 Hemiplegia and hemiparesis following cerebral infarction affecting right dominant side (principal); I69.320 Aphasia following cerebral infarction; I10 Essential (primary) hypertension; N39.0 Urinary tract infection, site not specified
CPT/HCPCS: 36416; 85610

== ENCOUNTER → 2022-01-22 | Outpatient (REF) | payer SELFPAY ==
[2022-01-22 09:26] LABS: INR Fingerstick 1.5; Prothrombin Time Fingerstick 18.6 SEC (11.7-14.9)
== END | disposition home or self-care (01) ==
LOC: OLS.ACW100 04:00
PROVIDERS: Referring Provider Family Medicine; Visit Provider Family Medicine
DX: I10 Essential (primary) hypertension (principal); I69.351 Hemiplegia and hemiparesis following cerebral infarction affecting right dominant side; I69.320 Aphasia following cerebral infarction; N39.0 Urinary tract infection, site not specified
CPT/HCPCS: 36416; 85610

== ENCOUNTER → 2022-01-26 | Outpatient (REF) | payer SELFPAY ==
[2022-01-26 10:41] LABS: Hematocrit 42.3 % (40-54); Hemoglobin 13.6 g/dL (13.0-16.5); Mean Corp Hgb Conc 32.2 g/dL (32-36); Mean Corpuscular Hgb 30.7 pg (27.0-32.0); Mean Corpuscular Volume 95.5 fL (80-94); Mean Platelet Vol. 8.9 fl (6.2-12.0); Platelet Count 366 K/mm3 (150-450); RBC Distribution Width CV 13.3 % (11.6-14.6); Red Blood Count 4.43 M/mm3 (4.6-6.2); White Blood Count 7.9 K/mm3 (4.4-11.0)
[2022-01-26 10:58] LABS: International Normalized Ratio 1.4; Prothrombin Time (Protime)PT. 17.2 SECONDS (11.7-14.9)
[2022-01-26 11:06] LABS: Anion Gap 8 (5-15); BUN 15 mg/dL (7-18); BUN/Creat Ratio 22.7 RATIO (10-20); Calcium,Total 9.6 mg/dL (8.5-10.1); Chloride 102 mmol/L (98-107); Creatinine, Serum 0.66 mg/dL (0.70-1.30); EST Glomerular Filtration Rate 127 mL/min (>60); Est Glom Filt Rate - Afr Amer 154 mL/min (>60); Glucose 151 mg/dL (74-106); Potassium 3.9 mmol/L (3.5-5.1); Sodium Level 136 mmol/L (136-145)
== END | disposition home or self-care (01) ==
LOC: OLS.ACW100 05:00
PROVIDERS: Visit Provider Family Medicine
DX: I10 Essential (primary) hypertension (principal); I69.351 Hemiplegia and hemiparesis following cerebral infarction affecting right dominant side; N39.0 Urinary tract infection, site not specified; I69.320 Aphasia following cerebral infarction
CPT/HCPCS: 36415; 80048; 85027; 85610

== ENCOUNTER → 2022-01-29 | Outpatient (REF) | payer SELFPAY ==
[2022-01-29 08:35] LABS: Erythrocyte Sedimentation Rate 29 mm/hr (0-20)
== END | disposition home or self-care (01) ==
LOC: OLS.ACW100 05:00
PROVIDERS: Referring Provider Family Medicine; Visit Provider Family Medicine
DX: I10 Essential (primary) hypertension (principal); I69.351 Hemiplegia and hemiparesis following cerebral infarction affecting right dominant side; M62.81 Muscle weakness (generalized); R48.2 Apraxia; I69.320 Aphasia following cerebral infarction
CPT/HCPCS: 36415; 85652; 86140

== ENCOUNTER → 2022-02-02 | Outpatient (REF) | payer MEDICARE, SELFPAY ==
[2022-02-02 08:49] LABS: Hematocrit 42.8 % (40-54); Hemoglobin 13.7 g/dL (13.0-16.5); Mean Corpuscular Hgb 30.9 pg (27.0-32.0); Mean Corpuscular Volume 96.6 fL (80-94); Mean Platelet Vol. 8.7 fl (6.2-12.0); Platelet Count 347 K/mm3 (150-450); RBC Distribution Width CV 13.5 % (11.6-14.6); RBC Distribution Width SD 48.2 fl (35.1-43.9); Red Blood Count 4.43 M/mm3 (4.6-6.2); White Blood Count 9.5 K/mm3 (4.4-11.0)
[2022-02-02 09:47] LABS: Anion Gap 7 (5-15); BUN 15 mg/dL (7-18); BUN/Creat Ratio 28.8 RATIO (10-20); Calcium,Total 9.8 mg/dL (8.5-10.1); Chloride 99 mmol/L (98-107); Creatinine, Serum 0.52 mg/dL (0.70-1.30); EST Glomerular Filtration Rate 168 mL/min (>60); Est Glom Filt Rate - Afr Amer 203 mL/min (>60); Glucose 107 mg/dL (74-106); Sodium Level 134 mmol/L (136-145)
[2022-02-03 08:05] LABS: Color, Urine Yellow (Yellow); Glucose, Dipstick Normal (Normal); Ketone-Dipstick Negative (Negative); Leukocyte Esterase-Dipstick Negative /ul (Negative); Nitrite-Dipstick Negative (Negative); Occult Blood-Urine 10 /ul (Negative); Protein-Dipstick Negative (Negative); Urine Bilirubin Dipstick Negative (Negative); Urine Clarity Clear (Clear); Urine Urobilinogen Normal (Normal)
== END | disposition home or self-care (01) ==
LOC: OLS.ACW100 05:00
PROVIDERS: Referring Provider Family Medicine; Visit Provider Family Medicine
DX: I10 Essential (primary) hypertension (principal); I69.351 Hemiplegia and hemiparesis following cerebral infarction affecting right dominant side; N39.0 Urinary tract infection, site not specified; I69.320 Aphasia following cerebral infarction; R48.2 Apraxia; M62.81 Muscle weakness (generalized)
CPT/HCPCS: 36415; 80048; 81002; 85027; 87086; 87088

== ENCOUNTER → 2022-02-09 | Outpatient (REF) | payer MEDICARE, SELFPAY ==
[2022-02-09 08:43] LABS: Hematocrit 41.3 % (40-54); Mean Corp Hgb Conc 31.5 g/dL (32-36); Mean Corpuscular Hgb 30.2 pg (27.0-32.0); Platelet Count 340 K/mm3 (150-450); RBC Distribution Width CV 13.5 % (11.6-14.6); RBC Distribution Width SD 48.1 fl (35.1-43.9); White Blood Count 7.5 K/mm3 (4.4-11.0)
[2022-02-09 09:21] LABS: Anion Gap 7 (5-15); BUN 13 mg/dL (7-18); Calcium,Total 9.7 mg/dL (8.5-10.1); Chloride 103 mmol/L (98-107); Creatinine, Serum 0.59 mg/dL (0.70-1.30); EST Glomerular Filtration Rate 145 mL/min (>60); Est Glom Filt Rate - Afr Amer 175 mL/min (>60); Glucose 115 mg/dL (74-106); Potassium 4.4 mmol/L (3.5-5.1); Sodium Level 137 mmol/L (136-145)
== END | disposition home or self-care (01) ==
LOC: OLS.ACW100 04:55
PROVIDERS: Visit Provider Family Medicine
DX: I69.351 Hemiplegia and hemiparesis following cerebral infarction affecting right dominant side (principal); I69.320 Aphasia following cerebral infarction; R48.2 Apraxia; I10 Essential (primary) hypertension; M62.81 Muscle weakness (generalized)
CPT/HCPCS: 36415; 80048; 85027

== ENCOUNTER → 2022-02-16 | Outpatient (REF) | payer MEDICARE, SELFPAY ==
[2022-02-16 07:33] LABS: Hematocrit 42.9 % (40-54); Hemoglobin 13.7 g/dL (13.0-16.5); Mean Corp Hgb Conc 31.9 g/dL (32-36); Mean Corpuscular Hgb 30.3 pg (27.0-32.0); Mean Corpuscular Volume 94.9 fL (80-94); Platelet Count 315 K/mm3 (150-450); RBC Distribution Width CV 13.7 % (11.6-14.6); RBC Distribution Width SD 47.8 fl (35.1-43.9); Red Blood Count 4.52 M/mm3 (4.6-6.2); White Blood Count 6.7 K/mm3 (4.4-11.0)
[2022-02-16 07:44] LABS: Anion Gap 8 (5-15); BUN 13 mg/dL (7-18); BUN/Creat Ratio 21.8 RATIO (10-20); Calcium,Total 9.6 mg/dL (8.5-10.1); Chloride 101 mmol/L (98-107); EST Glomerular Filtration Rate 144 mL/min (>60); Est Glom Filt Rate - Afr Amer 174 mL/min (>60); Glucose 113 mg/dL (74-106); Sodium Level 137 mmol/L (136-145)
== END | disposition home or self-care (01) ==
LOC: OLS.ACW100 04:00
PROVIDERS: Referring Provider Family Medicine; Visit Provider Family Medicine
DX: I10 Essential (primary) hypertension (principal); I69.351 Hemiplegia and hemiparesis following cerebral infarction affecting right dominant side; M62.81 Muscle weakness (generalized); I69.320 Aphasia following cerebral infarction
CPT/HCPCS: 36415; 80048; 85027

== ENCOUNTER → 2022-02-20 | Outpatient (REF) | payer MEDICARE, MEDICAID, SELFPAY ==
[2022-02-20 08:12] LABS: Hematocrit 39.6 % (40-54); Hemoglobin 12.5 g/dL (13.0-16.5); Mean Corp Hgb Conc 31.6 g/dL (32-36); Mean Corpuscular Hgb 30.1 pg (27.0-32.0); Mean Corpuscular Volume 95.4 fL (80-94); Mean Platelet Vol. 8.9 fl (6.2-12.0); Platelet Count 282 K/mm3 (150-450); RBC Distribution Width CV 14.2 % (11.6-14.6); RBC Distribution Width SD 49.8 fl (35.1-43.9); Red Blood Count 4.15 M/mm3 (4.6-6.2); White Blood Count 9.9 K/mm3 (4.4-11.0)
[2022-02-20 08:34] LABS: Anion Gap 9 (5-15); BUN 29 mg/dL (7-18); BUN/Creat Ratio 15.5 RATIO (10-20); Calcium,Total 9.5 mg/dL (8.5-10.1); Chloride 102 mmol/L (98-107); Creatinine, Serum 1.87 mg/dL (0.70-1.30); EST Glomerular Filtration Rate 38 mL/min (>60); Est Glom Filt Rate - Afr Amer 46 mL/min (>60); Glucose 128 mg/dL (74-106); Potassium 5.1 mmol/L (3.5-5.1); Sodium Level 136 mmol/L (136-145)
== END | disposition home or self-care (01) ==
LOC: OLS.ACW100 05:00
PROVIDERS: Visit Provider Family Medicine
DX: I10 Essential (primary) hypertension (principal); I69.351 Hemiplegia and hemiparesis following cerebral infarction affecting right dominant side; M62.81 Muscle weakness (generalized); R48.2 Apraxia; I69.320 Aphasia following cerebral infarction
CPT/HCPCS: 36415; 80048; 85027

== ENCOUNTER → 2022-02-24 | Outpatient (REF) | payer MEDICARE, MEDICAID, SELFPAY ==
[2022-02-24 08:00] LABS: Hematocrit 40.1 % (40-54); Hemoglobin 12.7 g/dL (13.0-16.5); Mean Corp Hgb Conc 31.7 g/dL (32-36); Mean Corpuscular Hgb 29.8 pg (27.0-32.0); Mean Corpuscular Volume 94.1 fL (80-94); Platelet Count 353 K/mm3 (150-450); RBC Distribution Width CV 13.8 % (11.6-14.6); RBC Distribution Width SD 47.5 fl (35.1-43.9); Red Blood Count 4.26 M/mm3 (4.6-6.2); White Blood Count 7.2 K/mm3 (4.4-11.0)
[2022-02-24 08:20] LABS: Anion Gap 4 (5-15); BUN 18 mg/dL (7-18); BUN/Creat Ratio 29.2 RATIO (10-20); Calcium,Total 9.7 mg/dL (8.5-10.1); Chloride 104 mmol/L (98-107); Creatinine, Serum 0.62 mg/dL (0.70-1.30); EST Glomerular Filtration Rate 138 mL/min (>60); Est Glom Filt Rate - Afr Amer 167 mL/min (>60); Glucose 113 mg/dL (74-106); Potassium 4.1 mmol/L (3.5-5.1); Sodium Level 137 mmol/L (136-145)
== END | disposition home or self-care (01) ==
LOC: OLS.ACW100 05:10
PROVIDERS: Visit Provider Family Medicine
DX: I69.351 Hemiplegia and hemiparesis following cerebral infarction affecting right dominant side (principal); I69.320 Aphasia following cerebral infarction; R48.2 Apraxia; I10 Essential (primary) hypertension; M62.81 Muscle weakness (generalized)
CPT/HCPCS: 36415; 80048; 85027

== ENCOUNTER → 2022-03-03 | Outpatient (REF) | payer MEDICARE, MEDICAID, SELFPAY ==
[2022-03-03 09:28] LABS: Hematocrit 41.4 % (40-54); Hemoglobin 13.2 g/dL (13.0-16.5); Mean Corp Hgb Conc 31.9 g/dL (32-36); Mean Corpuscular Hgb 30.1 pg (27.0-32.0); Mean Corpuscular Volume 94.3 fL (80-94); Mean Platelet Vol. 8.9 fl (6.2-12.0); Platelet Count 366 K/mm3 (150-450); RBC Distribution Width SD 48.7 fl (35.1-43.9); Red Blood Count 4.39 M/mm3 (4.6-6.2); White Blood Count 7.7 K/mm3 (4.4-11.0)
[2022-03-03 09:36] LABS: Anion Gap 4 (5-15); BUN 15 mg/dL (7-18); BUN/Creat Ratio 22.8 RATIO (10-20); Calcium,Total 9.7 mg/dL (8.5-10.1); Chloride 103 mmol/L (98-107); Creatinine, Serum 0.66 mg/dL (0.70-1.30); EST Glomerular Filtration Rate 128 mL/min (>60); Est Glom Filt Rate - Afr Amer 155 mL/min (>60); Glucose 118 mg/dL (74-106); Potassium 4.4 mmol/L (3.5-5.1); Sodium Level 136 mmol/L (136-145)
== END | disposition home or self-care (01) ==
LOC: OLS.ACW100 05:00
PROVIDERS: Visit Provider Family Medicine
DX: N39.0 Urinary tract infection, site not specified (principal); I69.351 Hemiplegia and hemiparesis following cerebral infarction affecting right dominant side; R91.1 Solitary pulmonary nodule; I69.320 Aphasia following cerebral infarction
CPT/HCPCS: 36415; 80048; 85027

== ENCOUNTER → 2022-03-10 | Outpatient (REF) | payer MEDICARE, MEDICAID, SELFPAY ==
[2022-03-10 09:29] LABS: Hematocrit 40.8 % (40-54); Hemoglobin 12.7 g/dL (13.0-16.5); Mean Corp Hgb Conc 31.1 g/dL (32-36); Mean Corpuscular Hgb 29.2 pg (27.0-32.0); Mean Corpuscular Volume 93.8 fL (80-94); Platelet Count 342 K/mm3 (150-450); RBC Distribution Width SD 48.4 fl (35.1-43.9); Red Blood Count 4.35 M/mm3 (4.6-6.2)
[2022-03-10 09:50] LABS: Anion Gap 5 (5-15); BUN 19 mg/dL (7-18); BUN/Creat Ratio 32.1 RATIO (10-20); Calcium,Total 9.4 mg/dL (8.5-10.1); Chloride 103 mmol/L (98-107); Creatinine, Serum 0.59 mg/dL (0.70-1.30); EST Glomerular Filtration Rate 145 mL/min (>60); Est Glom Filt Rate - Afr Amer 175 mL/min (>60); Glucose 118 mg/dL (74-106); Sodium Level 138 mmol/L (136-145)
== END | disposition home or self-care (01) ==
LOC: OLS.ACW100 05:20
PROVIDERS: Visit Provider Family Medicine
DX: I69.351 Hemiplegia and hemiparesis following cerebral infarction affecting right dominant side (principal); I69.320 Aphasia following cerebral infarction; R48.2 Apraxia; M62.81 Muscle weakness (generalized); I10 Essential (primary) hypertension
CPT/HCPCS: 36415; 80048; 85027

== ENCOUNTER → 2022-03-17 | Outpatient (REF) | payer MEDICARE, MEDICAID, SELFPAY ==
[2022-03-17 11:04] LABS: Hematocrit 42.7 % (40-54); Hemoglobin 13.9 g/dL (13.0-16.5); Mean Corp Hgb Conc 32.6 g/dL (32-36); Mean Platelet Vol. 9.2 fl (6.2-12.0); Platelet Count 316 K/mm3 (150-450); RBC Distribution Width CV 14.3 % (11.6-14.6); RBC Distribution Width SD 47.8 fl (35.1-43.9); Red Blood Count 4.64 M/mm3 (4.6-6.2); White Blood Count 6.7 K/mm3 (4.4-11.0)
[2022-03-17 11:42] LABS: Anion Gap 7 (5-15); BUN 16 mg/dL (7-18); BUN/Creat Ratio 29.5 RATIO (10-20); Calcium,Total 9.8 mg/dL (8.5-10.1); Chloride 103 mmol/L (98-107); Creatinine, Serum 0.54 mg/dL (0.70-1.30); EST Glomerular Filtration Rate 160 mL/min (>60); Est Glom Filt Rate - Afr Amer 193 mL/min (>60); Glucose 114 mg/dL (74-106); Sodium Level 135 mmol/L (136-145)
== END | disposition home or self-care (01) ==
LOC: OLS.ACW100 04:00
PROVIDERS: Referring Provider Family Medicine; Visit Provider Family Medicine
DX: I69.351 Hemiplegia and hemiparesis following cerebral infarction affecting right dominant side (principal); I69.320 Aphasia following cerebral infarction; N39.0 Urinary tract infection, site not specified; R91.1 Solitary pulmonary nodule
CPT/HCPCS: 36415; 80048; 85027

== ENCOUNTER → 2022-03-24 | Outpatient (REF) | payer MEDICARE, MEDICAID, SELFPAY ==
[2022-03-24 09:31] LABS: Hematocrit 40.5 % (40-54); Hemoglobin 13.4 g/dL (13.0-16.5); Mean Corp Hgb Conc 33.1 g/dL (32-36); Mean Corpuscular Hgb 30.2 pg (27.0-32.0); Mean Corpuscular Volume 91.2 fL (80-94); Mean Platelet Vol. 8.8 fl (6.2-12.0); Platelet Count 324 K/mm3 (150-450); RBC Distribution Width CV 14.3 % (11.6-14.6); RBC Distribution Width SD 48.4 fl (35.1-43.9); Red Blood Count 4.44 M/mm3 (4.6-6.2); White Blood Count 7.9 K/mm3 (4.4-11.0)
[2022-03-24 10:06] LABS: Anion Gap 6 (5-15); BUN 18 mg/dL (7-18); Calcium,Total 9.3 mg/dL (8.5-10.1); Chloride 105 mmol/L (98-107); Creatinine, Serum 0.55 mg/dL (0.70-1.30); EST Glomerular Filtration Rate 159 mL/min (>60); Est Glom Filt Rate - Afr Amer 192 mL/min (>60); Glucose 123 mg/dL (74-106); Potassium 4.2 mmol/L (3.5-5.1); Sodium Level 136 mmol/L (136-145)
== END ==
LOC: OLS.ACW100 04:00
PROVIDERS: Referring Provider Family Medicine; Visit Provider Family Medicine
DX: I69.351 Hemiplegia and hemiparesis following cerebral infarction affecting right dominant side (principal); I69.320 Aphasia following cerebral infarction; N39.0 Urinary tract infection, site not specified; R91.1 Solitary pulmonary nodule
CPT/HCPCS: 36415; 80048; 85027

== ENCOUNTER → 2022-03-31 | Outpatient (REF) | payer MEDICARE, MEDICAID, SELFPAY ==
[2022-03-31 09:03] LABS: Hematocrit 39.7 % (40-54); Hemoglobin 13.1 g/dL (13.0-16.5); Mean Corpuscular Volume 91.1 fL (80-94); Mean Platelet Vol. 8.7 fl (6.2-12.0); Platelet Count 305 K/mm3 (150-450); RBC Distribution Width CV 14.5 % (11.6-14.6); RBC Distribution Width SD 48.9 fl (35.1-43.9); Red Blood Count 4.36 M/mm3 (4.6-6.2); White Blood Count 8.1 K/mm3 (4.4-11.0)
[2022-03-31 09:39] LABS: Anion Gap 6 (5-15); BUN 16 mg/dL (7-18); BUN/Creat Ratio 29.6 RATIO (10-20); Calcium,Total 9.5 mg/dL (8.5-10.1); Chloride 106 mmol/L (98-107); Creatinine, Serum 0.54 mg/dL (0.70-1.30); EST Glomerular Filtration Rate 161 mL/min (>60); Est Glom Filt Rate - Afr Amer 195 mL/min (>60); Glucose 129 mg/dL (74-106); Potassium 4.2 mmol/L (3.5-5.1); Sodium Level 137 mmol/L (136-145)
== END ==
LOC: OLS.ACW100 04:00
PROVIDERS: Visit Provider Family Medicine
DX: I69.351 Hemiplegia and hemiparesis following cerebral infarction affecting right dominant side (principal); I69.320 Aphasia following cerebral infarction; R48.2 Apraxia; I10 Essential (primary) hypertension; M62.81 Muscle weakness (generalized)
CPT/HCPCS: 36415; 80048; 85027

== ENCOUNTER → 2022-04-07 | Outpatient (REF) | payer MEDICARE, MEDICAID, SELFPAY ==
[2022-04-07 10:27] LABS: Hematocrit 41.2 % (40-54); Mean Corp Hgb Conc 31.6 g/dL (32-36); Mean Platelet Vol. 8.7 fl (6.2-12.0); Platelet Count 318 K/mm3 (150-450); RBC Distribution Width CV 14.5 % (11.6-14.6); RBC Distribution Width SD 49.5 fl (35.1-43.9); Red Blood Count 4.48 M/mm3 (4.6-6.2); White Blood Count 8.4 K/mm3 (4.4-11.0)
[2022-04-07 11:12] LABS: Anion Gap 10 (5-15); BUN 17 mg/dL (7-18); BUN/Creat Ratio 33.9 RATIO (10-20); Calcium,Total 9.4 mg/dL (8.5-10.1); Chloride 106 mmol/L (98-107); EST Glomerular Filtration Rate 175 mL/min (>60); Est Glom Filt Rate - Afr Amer 212 mL/min (>60); Glucose 120 mg/dL (74-106); Potassium 4.5 mmol/L (3.5-5.1); Sodium Level 136 mmol/L (136-145)
== END ==
LOC: OLS.ACW100 05:00
PROVIDERS: Visit Provider Family Medicine
DX: I69.351 Hemiplegia and hemiparesis following cerebral infarction affecting right dominant side (principal); I69.320 Aphasia following cerebral infarction; R91.1 Solitary pulmonary nodule; N39.0 Urinary tract infection, site not specified
CPT/HCPCS: 36415; 80048; 85027

== ENCOUNTER → 2022-04-09 | Outpatient (REF) | payer MEDICARE, SELFPAY ==
[2022-04-09 10:24] LABS: Erythrocyte Sedimentation Rate 60 mm/hr (0-20)
== END ==
LOC: OLS.ACW100 05:30
PROVIDERS: Visit Provider Family Medicine
DX: I69.351 Hemiplegia and hemiparesis following cerebral infarction affecting right dominant side (principal); I69.320 Aphasia following cerebral infarction; N39.0 Urinary tract infection, site not specified; R91.1 Solitary pulmonary nodule
CPT/HCPCS: 36415; 85652; 86140

== ENCOUNTER → 2022-04-14 | Outpatient (REF) | payer MEDICARE, MEDICAID, SELFPAY ==
[2022-04-14 09:54] LABS: Hematocrit 39.9 % (40-54); Hemoglobin 12.8 g/dL (13.0-16.5); Mean Corp Hgb Conc 32.1 g/dL (32-36); Mean Corpuscular Hgb 28.8 pg (27.0-32.0); Mean Corpuscular Volume 89.7 fL (80-94); Mean Platelet Vol. 8.7 fl (6.2-12.0); Platelet Count 326 K/mm3 (150-450); RBC Distribution Width CV 14.1 % (11.6-14.6); Red Blood Count 4.45 M/mm3 (4.6-6.2); White Blood Count 8.1 K/mm3 (4.4-11.0)
[2022-04-14 10:03] LABS: Anion Gap 6 (5-15); BUN 19 mg/dL (7-18); BUN/Creat Ratio 36.2 RATIO (10-20); Chloride 104 mmol/L (98-107); Creatinine, Serum 0.52 mg/dL (0.70-1.30); EST Glomerular Filtration Rate 166 mL/min (>60); Est Glom Filt Rate - Afr Amer 201 mL/min (>60); Glucose 112 mg/dL (74-106); Sodium Level 138 mmol/L (136-145)
== END ==
LOC: OLS.ACW100 05:00
PROVIDERS: Visit Provider Family Medicine
DX: I69.351 Hemiplegia and hemiparesis following cerebral infarction affecting right dominant side (principal); I69.320 Aphasia following cerebral infarction; N39.0 Urinary tract infection, site not specified; R91.1 Solitary pulmonary nodule
CPT/HCPCS: 36415; 80048; 85027

== ENCOUNTER → 2022-04-21 | Outpatient (REF) | payer MEDICARE, MEDICAID, SELFPAY ==
[2022-04-21 08:58] LABS: Hematocrit 40.3 % (40-54); Hemoglobin 12.8 g/dL (13.0-16.5); Mean Corp Hgb Conc 31.8 g/dL (32-36); Mean Corpuscular Volume 91.2 fL (80-94); Mean Platelet Vol. 8.8 fl (6.2-12.0); Platelet Count 300 K/mm3 (150-450); RBC Distribution Width CV 14.5 % (11.6-14.6); RBC Distribution Width SD 48.4 fl (35.1-43.9); Red Blood Count 4.42 M/mm3 (4.6-6.2)
[2022-04-21 09:12] LABS: Anion Gap 7 (5-15); BUN 15 mg/dL (7-18); BUN/Creat Ratio 29.5 RATIO (10-20); Calcium,Total 9.2 mg/dL (8.5-10.1); Chloride 102 mmol/L (98-107); Creatinine, Serum 0.51 mg/dL (0.70-1.30); EST Glomerular Filtration Rate 172 mL/min (>60); Est Glom Filt Rate - Afr Amer 209 mL/min (>60); Glucose 117 mg/dL (74-106); Sodium Level 138 mmol/L (136-145)
== END ==
LOC: OLS.ACW100 05:00
PROVIDERS: Visit Provider Family Medicine
DX: I69.351 Hemiplegia and hemiparesis following cerebral infarction affecting right dominant side (principal); I69.320 Aphasia following cerebral infarction; R91.1 Solitary pulmonary nodule; N39.0 Urinary tract infection, site not specified
CPT/HCPCS: 36415; 80048; 85027

== ENCOUNTER → 2022-04-28 | Outpatient (REF) | payer MEDICARE, MEDICAID, SELFPAY ==
[2022-04-28 09:49] LABS: Hematocrit 41.9 % (40-54); Hemoglobin 13.3 g/dL (13.0-16.5); Mean Corp Hgb Conc 31.7 g/dL (32-36); Mean Corpuscular Volume 91.5 fL (80-94); Mean Platelet Vol. 8.6 fl (6.2-12.0); Platelet Count 325 K/mm3 (150-450); RBC Distribution Width CV 14.5 % (11.6-14.6); RBC Distribution Width SD 48.7 fl (35.1-43.9); Red Blood Count 4.58 M/mm3 (4.6-6.2); White Blood Count 8.2 K/mm3 (4.4-11.0)
[2022-04-28 09:57] LABS: Anion Gap 11 (5-15); BUN 15 mg/dL (7-18); Calcium,Total 9.4 mg/dL (8.5-10.1); Chloride 101 mmol/L (98-107); Creatinine, Serum 0.43 mg/dL (0.70-1.30); EST Glomerular Filtration Rate 210 mL/min (>60); Est Glom Filt Rate - Afr Amer 254 mL/min (>60); Glucose 100 mg/dL (74-106); Potassium 4.1 mmol/L (3.5-5.1); Sodium Level 137 mmol/L (136-145)
== END ==
LOC: OLS.ACW100 05:00
PROVIDERS: Visit Provider Family Medicine
DX: I69.351 Hemiplegia and hemiparesis following cerebral infarction affecting right dominant side (principal); I69.320 Aphasia following cerebral infarction; N39.0 Urinary tract infection, site not specified; R91.1 Solitary pulmonary nodule
CPT/HCPCS: 36415; 80048; 85027

== ENCOUNTER → 2022-05-05 | Outpatient (REF) | payer MEDICARE, MEDICAID, SELFPAY ==
[2022-05-05 09:05] LABS: Hematocrit 40.5 % (40-54); Hemoglobin 13.2 g/dL (13.0-16.5); Mean Corp Hgb Conc 32.6 g/dL (32-36); Mean Corpuscular Hgb 30.3 pg (27.0-32.0); Mean Corpuscular Volume 92.9 fL (80-94); Mean Platelet Vol. 8.7 fl (6.2-12.0); Platelet Count 314 K/mm3 (150-450); RBC Distribution Width CV 14.5 % (11.6-14.6); RBC Distribution Width SD 49.6 fl (35.1-43.9); Red Blood Count 4.36 M/mm3 (4.6-6.2); White Blood Count 6.2 K/mm3 (4.4-11.0)
[2022-05-05 09:23] LABS: Anion Gap 8 (5-15); BUN 23 mg/dL (7-18); BUN/Creat Ratio 38.1 RATIO (10-20); Calcium,Total 9.5 mg/dL (8.5-10.1); Chloride 102 mmol/L (98-107); EST Glomerular Filtration Rate 141 mL/min (>60); Est Glom Filt Rate - Afr Amer 171 mL/min (>60); Glucose 122 mg/dL (74-106); Potassium 4.7 mmol/L (3.5-5.1); Sodium Level 136 mmol/L (136-145)
== END ==
LOC: OLS.ACW100 05:00
PROVIDERS: Visit Provider Family Medicine
DX: I69.351 Hemiplegia and hemiparesis following cerebral infarction affecting right dominant side (principal); I69.320 Aphasia following cerebral infarction; N39.0 Urinary tract infection, site not specified; R91.1 Solitary pulmonary nodule
CPT/HCPCS: 36415; 80048; 85027

== ENCOUNTER → 2022-05-12 | Outpatient (REF) | payer MEDICARE, MEDICAID, SELFPAY ==
[2022-05-12 08:50] LABS: Hematocrit 38.8 % (40-54); Hemoglobin 12.4 g/dL (13.0-16.5); Mean Corpuscular Hgb 29.7 pg (27.0-32.0); Mean Platelet Vol. 8.6 fl (6.2-12.0); Platelet Count 332 K/mm3 (150-450); RBC Distribution Width CV 14.6 % (11.6-14.6); RBC Distribution Width SD 49.3 fl (35.1-43.9); Red Blood Count 4.17 M/mm3 (4.6-6.2); White Blood Count 8.1 K/mm3 (4.4-11.0)
[2022-05-12 09:01] LABS: Anion Gap 8 (5-15); BUN 34 mg/dL (7-18); BUN/Creat Ratio 53.3 RATIO (10-20); Calcium,Total 9.6 mg/dL (8.5-10.1); Chloride 101 mmol/L (98-107); Creatinine, Serum 0.64 mg/dL (0.70-1.30); EST Glomerular Filtration Rate 133 mL/min (>60); Est Glom Filt Rate - Afr Amer 160 mL/min (>60); Glucose 135 mg/dL (74-106); Sodium Level 134 mmol/L (136-145)
== END ==
LOC: OLS.ACW100 05:00
PROVIDERS: Visit Provider Family Medicine
DX: I69.351 Hemiplegia and hemiparesis following cerebral infarction affecting right dominant side (principal); I69.320 Aphasia following cerebral infarction; N39.0 Urinary tract infection, site not specified; R91.1 Solitary pulmonary nodule
CPT/HCPCS: 36415; 80048; 85027